=== PATIENT | female | born 1950 | race Caucasian/White ===

== ENCOUNTER → 2018-09-02 13:36 | Outpatient (CLI) | payer MEDICARE, SELFPAY ==
--- NOTE | 2018-09-02 13:40 | DI.MG.S_ITS ---
BILATERAL DIGITAL SCREENING MAMMOGRAM 3D/2D WITH CAD: 09/02/2018 CLINICAL: Routine screening. Comparison is made to exams dated: 03/17/2014 mammogram, 12/20/2012 mammogram, and 10/18/2011 mammogram - [facility]. The tissue of both breasts is extremely dense, which lowers the sensitivity of mammography. Current study was also evaluated with a Computer Aided Detection (CAD) system. There are mole markers on both breasts. No significant masses, calcifications, or other findings are seen in either breast. There has been no significant interval change. IMPRESSION: NEGATIVE There is no mammographic evidence of malignancy. A 1 year screening mammogram is recommended. This exam was interpreted at Station ID: [id number]. NOTE: For mammograms, a report in lay terms will be sent to the patient. Approximately 15% of breast malignancies will not be visualized mammographically. In the management of a palpable breast mass, a negative mammogram must not discourage biopsy of a clinically suspicious lesion. Electronically Signed By: Satya hagen/lilliam:09/02/2018 20:14:02 letter sent: Normal Exam ACR BI-RADS Category 1: Negative 3341F
== END ==
PROVIDERS: PCP Internal Medicine; Visit Provider Internal Medicine
DX: Z12.31 Encounter for screening mammogram for malignant neoplasm of breast (principal)
CPT/HCPCS: 77063; 77067

== ENCOUNTER → 2019-07-23 08:16 | Outpatient (CLI) | payer MEDICARE, SELFPAY ==
[2019-07-23 10:26] LABS: Alanine Aminotransferase 15 IU/L (<35); Albumin 4.2 g/dL (3.5-5.0); Albumin Globulin Ratio 1.4 (1.0-2.8); Alkaline Phosphatase 53 U/L (38-126); Aspartate Aminotransferase 26 IU/L (14-36); BUN Creatinine Ratio 21.4 (6-22); Bilirubin Total 0.4 mg/dL (0.2-1.3); Blood Urea Nitrogen 15 mg/dL (7-17); Calcium 9.4 mg/dL (8.4-10.2); Carbon Dioxide 28 mmol/L (22-32); Chloride 106 mmol/L (98-107); Cholesterol 249 mg/dL (140-199); Estimated Glomerular Filt Rate > 60.0 mL/min (>60); Glucose 84 mg/dL (80-110); HDL Cholesterol 74 mg/dL (40-60); HEMOLYSIS < 15 (0-50); LDL Cholesterol Calculated 166 mg/dL (<100); Sodium 142 mmol/L (137-145); Total Protein 7.2 g/dL (6.3-8.2); Triglycerides 45 mg/dL (35-150)
== END ==
PROVIDERS: PCP Internal Medicine; Referring Provider Internal Medicine; Visit Provider Internal Medicine
DX: Z13.1 Encounter for screening for diabetes mellitus (principal); Z13.220 Encounter for screening for lipoid disorders; Z13.6 Encounter for screening for cardiovascular disorders
CPT/HCPCS: 36415; 80053; 80061

== ENCOUNTER → 2019-07-31 10:54 | Outpatient (CLI) | payer MEDICARE, SELFPAY ==
--- NOTE | 2019-07-31 10:56 | DI.RAD.S_ITS ---
PROCEDURE: XR HAND LT MIN 3V INDICATIONS: left hand pain TECHNIQUE: 3 views of the hand(s) acquired. COMPARISON: None. FINDINGS: Bones: No fractures or dislocations. Carpal bones are normally aligned. No suspicious bony lesions. Partial lucency present at the third MCP joint. There also prominent lucency seen within the triquetral, lunate and distal radius. Possible faint chondrocalcinosis projecting the ulnocarpal compartment. Marginal lucency seen at the DIP joint of the index, middle, ring and little finger. First CMC and triscaphe joint degeneration. Additional lucency present at the base of the fifth metacarpal. Soft tissues: No suspicious soft tissue calcifications. IMPRESSION: Marginal lucencies present at the third MCP joint, as well as the DIP joints of the fingers as above Additional lucencies present within the lunate, triquetral and distal radius. These could represent erosions versus cysts, technically age-indeterminate the absence of prior studies. Faint chondrocalcinosis projects in the ulnocarpal compartment. Combined with the lucencies discussed above, this raises the possibility of CPPD arthropathy. Dictated by: Cong Alexander M.D. on 07/31/2019 at 13:19 Approved by: Cong Alexander M.D. on 07/31/2019 at 13:23
== END ==
PROVIDERS: PCP Internal Medicine; Referring Provider Internal Medicine; Visit Provider Internal Medicine
DX: M79.642 Pain in left hand (principal); M18.12 Unilateral primary osteoarthritis of first carpometacarpal joint, left hand
CPT/HCPCS: 73130

== ENCOUNTER → 2020-06-11 09:04 | Outpatient (CLI) | payer MEDICARE, SELFPAY ==
[2020-06-11 13:31] LABS: COVID19 -Nasal RAPID Negative (Negative)
== END ==
PROVIDERS: PCP Internal Medicine; Visit Provider Surgery
DX: Z01.812 Encounter for preprocedural laboratory examination (principal); Z20.822 Contact with and (suspected) exposure to COVID-19
CPT/HCPCS: 87635; C9803

== ENCOUNTER 2020-06-14 08:14 | Day surgery (SDC) | payer MEDICARE, SELFPAY ==
--- NOTE | 2020-06-14 | PATH_ITS ---
[facility] Accession Number: [id number] . 01 Material submitted: . colon - DESCENDING COLON POLYP . 01 Clinical history: . SCREENING COLONOSCOPY . 02 Diagnosis: Descending Colon, Polyp, Biopsy: Focal high-grade dysplasia arising in a background of multiple fragments of tubulovillous adenoma. No evidence of invasive carcinoma. Additional levels were examined. MRV 06/18/2020 1456 Local . 02 Comment: As part of routine supplier quality engineer, Dr. Hughes also reviewed this case and agrees with the diagnosis. Dr. Velazquez gave preliminary results to Ya in Dr. Valentine's office on 06/18/2020. . 02 Electronically signed: . Janice Velazquez MD, Pathologist NPI- [id number] . 01 Gross description: . DESCENDING COLON POLYP: Received in formalin are multiple fragment(s) of hernandez, soft tissue measuring 0.1 x 0.1 x 0.1 cm to 0.4 x 0.4 x 0.3 cm submitted entirely in 1 cassette(s) /CRISTINA 06/15/2020 192 Local . 02 Pathologist provided ICD-10: D12.4 . 02 CPT . 445404 Performed at: 01 [facility] [address], [place], [place] [id number] MD Samir Anderson MD Phone: [phone] Performed at: 02 [facility] [address] [place], [place] [id number] MD Janice Velazquez MD Phone: [phone]
[2020-06-14 08:38] VITALS: BP 141/87; PULSE 79; RESP 16; TEMP 36.2; O2SAT 97; BMI 25.3
[2020-06-14] MEDS: LACTATED RINGERS 1,000 ML 200 ML IV (09:05)
--- NOTE | 2020-06-14 09:34 | PM.HP.1 ---
History of Present Illness History of Present Illness Date Patient Seen: 06/14/20 Time Patient Seen: 09:36 Chief complaint: SCREENING COLONOSCOPY Narrative: The patient presents for colorectal sreening. They have never had any previous examination for such. No personal or family history of colon cancer. On further history denies any recent gastrointestinal symptoms. No nausea, vomiting, abdominal pain, loss of appetite, unexplained weight loss, change in bowel habits, diarrhea, constipation, melena, hematochezia, or bright red blood per rectum. Patient History Medical History Cardiac arrhythmia (~1985) Chicken pox Chronic back pain Herpes History of urinary self-catheterization (~1998) Skin problem (~2018) Surgical History Anesthesia S/P breast lumpectomy Family & Social History Family History Father History of heart attack Colonic adenoma Mother Hypertension Stroke Sister Early onset Alzheimer's dementia Grandmother Alzheimer's disease Grandmother Leukemia Tobacco & Substance use: Smoking Status Former smoker alcohol intake current alcohol intake frequency a few times a week Substance Use Type marijuana Meds Home Medications and Allergies Home Medications Medication Instructions Recorded Confirmed Type ginseng 500 mg capsule 500 mg PO .QOTHERWEEK cap 07/31/19 06/14/20 History multivitamin 1 tab PO DAILY 07/31/19 06/14/20 History turmeric root extract 500 mg 500 mg PO DAILY 07/31/19 06/14/20 History capsule Allergies Allergy/AdvReac Type Severity Reaction Status Date / Time No Known Drug Allergies Allergy Verified 07/31/19 09:52 Review of Systems Review of Systems Narrative: A 10 point review of systems is negative except as noted in the HPI Exam Vital Signs (past 8 hours): - 06/14/20 08:38 Temperature 97.1 F L Pulse Rate 79 Respiratory Rate 16 Blood Pressure 141/87 H Pulse Oximetry 97 Oxygen Delivery Method Room Air Oxygen Flow Rate 0 Narrative Exam Narrative: General-no acute distress, well nourished adult female HEENT-moist mucous membranes, no scleral icterus Neck-supple, no lymphadenopathy Chest- non labored respirations, clear to auscultation bilaterally Cardiac-regular rate no peripheral edema Abdomen-soft, nontender, non distended Extremities-warm, well perfused Neurological-alert and oriented, no focal deficits Assessment & Plan Assessment & Plan narrative: The patient requires colorectal screening and colonoscopy is recommended. Technical details were discussed. Risks, benefits, alternatives explained. Risks including but not limited to myocardial infarction, aspiration, bleeding, pain, missed lesion, incomplete examination, need for further radiographic studies, colonic perforation, and need for major abdominal surgery were discussed. All questions were answered to their satisfaction, and they are in agreement with this plan.
[2020-06-14] MEDS: fentaNYL 250 MCG/5 ML INJ IV (09:56)
[2020-06-14] MEDS: MIDAZOLAM 5 MG/5 ML VIAL IV (09:56)
[2020-06-14 10:30] VITALS: BP 131/73; PULSE 75; RESP 19; TEMP 36.6; O2SAT 99
--- NOTE | 2020-06-14 10:30 | PM.OP.ENDO ---
Operative Date/Time/Diagnoses Date of procedure: 06/14/20 Time of procedure: 10:30 Pre-op diagnosis: Screening colonoscopy Post-op diagnosis: same Procedure & Clinicians Study performed: Colonoscopy Polypectomy Same procedure as scheduled: Yes Indications: 69-year-old female no prior colonoscopy here for routine screening Surgeon: Dereje Valentine Procedure Notes Procedure in detail: Medications: Conscious sedation using 5*mg IV midazolam and 200mcg IV of fentanyl The history and physical was performed/updated and the patient is ASA class is 1. The procedure was discussed in detail with the patient. Potential risks complications including infection, bleeding, missed diagnosis, perforation, need for surgery, and were explained. Their questions were answered and informed consent was obtained. Patient was brought to the procedure room and placed standard monitoring equipment. The patient's vital signs were monitored continuously throughout the entire procedure. Prior to starting time-out was performed. The patient was placed in the left lateral recumbent position. Procedural sedation was administered. Examination began with a thorough inspection of the perianal area there was no evidence of fissures, fistulae, external hemorrhoids or cutaneous malignancy. The colonoscopy scope was then placed into the anal canal and was advanced to the cecum, which was identified by the ileocecal valve, the appendiceal orifice and the confluence of the taenia. The scope was then slowly withdrawn examining colon thoroughly in all directions, irrigating it of any residual stool. A large polyp 2-3 cm in maximal diameter or collection of polyps within grouping were found in the descending colon at 35 cm from the anal verge. Polyp was Serrated in its appearance. I was able to removed approximately 90% of the polyp in pieces using the cold snare. Hemostasis was observed. I could not remove the entirety of the polyp given the very flat consistency of the polyp and concerned that I would be at risk of causing a perforation. The site of the polyp was tattooed with 3 mL of ink spread through 4 quadrants just distal to to the polyp. The patient tolerated the procedure well. They will be discharged once criteria are met. The prep was of good/excellent quality. The withdrawl time was 22 minutes. The sedation time was 43 minutes. Findings: polyp Specimen(s): other (Descending colon) Complications: none Impression: Colonic polyp Post-procedure Recommendations: Colonscopy in 1 year Disposition: same day surgery
[2020-06-14 10:35] VITALS: BP 129/70; PULSE 69; RESP 16; O2SAT 99
[2020-06-14 10:42] VITALS: BP 140/77; PULSE 73; RESP 16; O2SAT 98
--- NOTE | 2020-06-14 10:58 | SUR.PHASEII ---
Pt arrived from phase II via stretcher. pt sitting up in bed and easily arousable to voice when spoken to. pt requesting to rest longer prior to discharge at this time. Pt denies any pain/or discomfort. Bed in lowest position and call light given to pt.
[2020-06-14 11:15] VITALS: BP 132/80; PULSE 68; RESP 15; TEMP 36.6; O2SAT 98
== END 2020-06-14 11:30 | disposition home or self-care (01) ==
PROVIDERS: PCP Internal Medicine; Referring Provider Surgery; Visit Provider Surgery
PROC: 0DJD8ZZ Inspection of Lower Intestinal Tract, Via Natural or Artificial Opening Endoscopic (ICD-10-PCS; CPT 45378; principal; 2020-06-14 09:15)
DX: Z12.11 Encounter for screening for malignant neoplasm of colon (principal); D12.4 Benign neoplasm of descending colon
CPT/HCPCS: 45381; 45385; 99152; 99153; J2250; J3010

== ENCOUNTER → 2020-07-01 07:34 | Outpatient (CLI) | payer MEDICARE, SELFPAY ==
[2020-07-01] MEDS: COVID-19 VACC #1, MRNA(MOD) 100 MCG/0.5 ML VIAL IM (07:48)
== END ==
PROVIDERS: PCP Internal Medicine; Visit Provider Internal Medicine
DX: Z23 Encounter for immunization (principal)
CPT/HCPCS: 0011A; 91301

== ENCOUNTER → 2020-07-05 10:03 | Outpatient (CLI) | payer MEDICARE, SELFPAY ==
--- NOTE | 2020-07-05 10:04 | DI.MG.S_ITS ---
BILATERAL DIGITAL SCREENING MAMMOGRAM 3D/2D WITH CAD: 07/05/2020 CLINICAL: Routine screening. Comparison is made to exams dated: 09/02/2018 mammogram - [facility], 03/17/2014 mammogram, and 12/20/2012 mammogram - [facility]. The tissue of both breasts is extremely dense, which lowers the sensitivity of mammography. Current study was also evaluated with a Computer Aided Detection (CAD) system. There are mole markers on both breasts. No significant masses, calcifications, or other findings are seen in either breast. There has been no significant interval change. IMPRESSION: NEGATIVE There is no mammographic evidence of malignancy. A 1 year screening mammogram is recommended. This exam was interpreted at Station ID: [id number]. NOTE: For mammograms, a report in lay terms will be sent to the patient. Approximately 15% of breast malignancies will not be visualized mammographically. In the management of a palpable breast mass, a negative mammogram must not discourage biopsy of a clinically suspicious lesion. Electronically Signed By: Bryan paz/lilliam:07/05/2020 11:09:53 letter sent: Normal Exam ACR BI-RADS Category 1: Negative 3341F
== END ==
PROVIDERS: PCP Internal Medicine; Referring Provider Internal Medicine; Visit Provider Internal Medicine
DX: Z12.31 Encounter for screening mammogram for malignant neoplasm of breast (principal)
CPT/HCPCS: 77063; 77067

== ENCOUNTER → 2020-07-12 09:09 | Outpatient (CLI) | payer MEDICARE, SELFPAY ==
[2020-07-12 12:20] LABS: COVID19 -Nasal RAPID Negative (Negative)
== END ==
PROVIDERS: PCP Internal Medicine; Visit Provider Surgery
DX: Z20.822 Contact with and (suspected) exposure to COVID-19 (principal)
CPT/HCPCS: 87635

== ENCOUNTER 2020-07-13 06:28 | Inpatient (IN) | payer MEDICARE, SELFPAY ==
[2020-07-13] VITALS (21 sets, daily range): BP systolic 92–127; BP diastolic 49–73; PULSE 59–98; RESP 9–18; TEMP 35.9–36.7; O2SAT 94–99; BMI 25.3
--- NOTE | 2020-07-13 | PATH_ITS ---
[facility] Accession Number: [id number] . 01 Material submitted: . sigmoid colon - SIGMOID COLON SEGMENT . 01 Clinical history: . A: SIGMOID COLON SEGMENT, STITCH AT LESION . 02 Diagnosis: Sigmoid Colon, Segmental Resection: Tubulovillous adenoma; please see comment. Diverticulosis. No evidence of malignancy or high-grade dysplasia. [facility] 07/20/2020 1532 Local . 02 Comment: The lesion of interest is a tubulovillous adenoma. The residual lesion contains no high-grade dysplasia and extends focally and superficially into an underlying diverticulum. There is no evidence of malignancy. . . 02 Electronically signed: . Janice Velazquez MD, Pathologist NPI- [id number] . 01 Gross description: . The specimen is received in formalin, labeled sigmoid colon segment and consists of a 12.0 cm in length by 3.0 cm in external diameter portion of colon with two stapled margins. The serosa is hernandez-pink and smooth and there is an abundant amount of attached adipose tissue. The specimen has been partially previously opened and there is a suture lesion. The mucosa is hernandez-pink with normal mucosal folds and there is a 1.0 x 1.0 x 0.5 cm hernandez-pink nodule adjacent to the suture designated lesion. Sectioning reveals possible extension into the submucosa; however, no obvious involvement with the muscularis propria. The lesion is located 2 cm from the closest stapled margin and greater than 5 cm from the mesenteric and opposing margin. The wall thickness measures 0.2 cm. There is a 0.5 x 0.4 x 0.2 cm possible sessile polyp located 6.0 cm from the mass and 2.6 cm from the nearest stapled margin. Sectioning through the attached adipose tissue reveals multiple lymph nodes ranging from 0.2 to 0.5 cm. Multiskill Operator sections are submitted. . A1: plastic products sales representative perpendicular sections of stapled margin nearest mass. A2: opposing stapled margin (blue). A3-A4: mass, entirely submitted. A5: colon away from mass, please note that possible sessile polyp is included. A6: intact lymph nodes. A7-A10: plastic products sales representative adipose tissue. (EA:[id number]) /MRV 07/20/2020 1532 Local . 02 Microscopic: . . . 02 Pathologist provided ICD-10: D12.5 . 02 CPT . 168544 Performed at: 01 [facility] [address] [place] [address], [place], [place] [id number] MD Samir Anderson MD Phone: [phone] Performed at: 02 [facility] [place] [address] [place], [place] [id number] MD Janice Velazquez MD Phone: [phone]
[2020-07-13] MEDS: LACTATED RINGERS 1,000 ML 42 ML IV ×3 (07:10→12:50)
[2020-07-13] MEDS: ACETAMINOPHEN IV 1,000 MG/100 ML VIAL 400 MG IV (07:20)
--- NOTE | 2020-07-13 07:35 | PM.PREOP ---
Pre-operative Note Interval Note History & Physical reviewed/Exam performed by Physician: Yes Changes to H&P: No
[2020-07-13] MEDS: PIPERACILLIN-TAZO 3.375 GM/50 ML FROZ.PIGGY IV (08:10)
[2020-07-13] MEDS: BUPIVACAINE LIPOSOME 266 MG/20 ML VIAL INJ (08:25)
[2020-07-13] MEDS: BUPIVACAINE 0.25% (PF) VIAL 30 ML INJ (08:30)
--- NOTE | 2020-07-13 08:47 | SUR.OPER ---
Lithotomy on padded OR bed. [place] Pad Positioner under torso. Head on pillow, arms padded and tucked at sides. Legs secured in padded yellow fins stirrups.
--- NOTE | 2020-07-13 12:22 | PM.OP.1 ---
Operative Date/Time/Diagnoses Date of procedure: 07/13/20 Time of procedure: 12:22 Pre-op diagnosis: high grade dysplasia in a colonic adenoma Post-op diagnosis: same Procedure & Clinicians Procedure: laparoscopic assisted sigmoid colectomy Same procedure as scheduled: Yes Indications: 69F had an incompletely removed colonic adenoma with high grade dysplasia here for sigmoid colectomy Surgeon: Dereje Valentine Full Stack Net Developer: David aMy Anesthesia Type: General Operative Notes Findings: remnant of the colonic polyp within the resection. no evidence of metastatic disease. Negative leak test Specimen(s): other (sigmoid colon stitch metzger the lesion) Estimated Blood Loss (mL): 50 Procedure in detail: The patient was brought to the operating room and placed supine on the table. Bilateral lower extremity compression devices were applied. General anesthesia was induced and they were intubated with an endotracheal tube. They were placed in the lithotomy position and prepped and draped in sterile fashion. A juan catheter was placed under sterile condition. They received 3.375 g of Zosyn prior to skin incision. Time-out was performed to ensure the correct patient procedure necessary equipment within the operating room. An infraumbilical 1 cm incision was made, the umbilical stalk was elevated, the fascia was sharply incised and the abdomen was entered atraumatically. Pneumoperitoneum was established. The laparoscope was inserted into the abdomen, inspection was made there was no evidence of injury upon entry. 5 mm ports were placed suprapubic and the right lower quadrant. There sigmoid colon was mobilized off its lateral attachements. The descending colon was followed down to the pelvis the tattoo marking was not clearly focal and therefore an on table colonoscopy was performed, the polyp remnant was observed and the location marked for identification. The sigmoid colon was extremely mobile and redundant and easily mobilized to the midline. A 6 inch infra umbilical incision was made and the sigmoid colon was exteriorized. The colon was divided with the LONNIE stapler blue load 70 mm above and below the lesion. The mesentery was divided relatively close to the colon wall as the pathology was high grade dysplasia not invasive cancer. The specimen was opened on the back table and the remnant adenoma was within the specimen with at least 3 cm margins proximal and distal. A hand sewn end to end anastamosis was formed in two layers using silk and vircyl. The anastamosis was widely patent and well perfused. The anastamosis was leak tested and this was negative. The abdomen was copiously irrigated and hemostasis checked. The midline fascia was closed with #1 PDS in running fashion. The subcutaneous tissues were reapproximated using 3 0 Vicryl, skin closed with 3-0 Monocryl. The laparoscopic port incisions were closed with 4-0 Monocryl. The skin was sealed with Dermabond. The sponge instrument count at the end of the operation was correct. The patient emerged from general anesthesia, extubated and transferred to the postoperative care unit in stable condition. Complications: none Post-operative Condition: stable Disposition: Acute Care
[2020-07-13] MEDS: LACTATED RINGERS 1,000 ML 100 ML IV ×2 (13:40→21:51)
--- NOTE | 2020-07-13 13:44 | PT-IP ANOTE ---
pt is still in PACU and not up on the acute floor yet. will f/u tomorrow.
--- NOTE | 2020-07-13 14:20 | PC.NURSE ---
Postop Note Pt arrived to room 227 from PACU at 1340. Drowsy but awakens easily to voice, able to answer all questions appropriately, oriented x3. SpO2 96% on RA. VSS. Denies pain, denies nausea. Incision to abdomen sealed with surgical glue, C/D/I except for small amount sanguinous drainage to umbilicus - gauze lightly placed over this portion of site. Lap sites all C/D/I. Mims in place and draining clear yellow urine. Oriented to room/call light/bed controls. Call light within reach, acknowledged understanding and will call before getting out of bed. Bed alarm on for safety. Declines to lock up any valuables in safe. Has one pair earrings, one necklace, and one pink stone that she wishes to keep in room (jewelry from her daughters). Three bags total in room. Upper dentures by sink.
--- NOTE | 2020-07-13 14:52 | OT.IPNOTE ---
Per ICU nurse, pt just came up to the floor and not ready to be seen for OT eval. To check on the pt tomorrow.
[2020-07-13] MEDS: ACETAMINOPHEN 325 MG TABLET 650 MG PO ×2 (18:54→23:58)
[2020-07-13] MEDS: MORPHINE 2 MG/ML INJ IV (18:55)
--- NOTE | 2020-07-13 22:53 | PC.NURSE ---
Report received, care assumed 1530. Pt. drowsy but arousable, oriented x3. VSS throughout shift. Tolerated sips of clear liquids. Reported mild to moderate pain; interventions included meds and ice pack. Pt slept most of shift. Continuous pulse ox on.
[2020-07-14] VITALS (8 sets, daily range): BP systolic 107–179; BP diastolic 56–93; PULSE 63–82; RESP 10–18; TEMP 36.6–37.2; O2SAT 95–98
[2020-07-14] MEDS: ACETAMINOPHEN 325 MG TABLET 650 MG PO ×3 (06:40→17:22)
--- NOTE | 2020-07-14 06:52 | PC.NURSE ---
Patient slept majority of the shift without complaint. Mild pain to abd - declines need for analgesia aside from scheduled tylenol. Encouraged more frequent repositioning. Tolerating clear liquid diet.
[2020-07-14] MEDS: LACTATED RINGERS 1,000 ML 100 ML IV (08:05)
[2020-07-14] MEDS: ENOXAPARIN 40 MG/0.4 ML SYRINGE SUBCUT (09:14)
[2020-07-14] MEDS: OXYCODONE IR 5 MG TABLET PO ×3 (09:15→17:23)
--- NOTE | 2020-07-14 10:02 | P.PN_ITS ---
Subjective Subjective Date Patient Seen: 07/14/20 Time Patient Seen: 10:02 Interval history: Pain well controlled. No nausea no flatus or BM. No acute overnight issues. Tolerated clears. Exam Vital Signs (past 8 hours): - 07/14/20 03:00 07/14/20 08:00 07/14/20 08:57 Temperature 97.9 F 98.2 F Pulse Rate 63 73 69 Respiratory Rate 14 18 10 L Blood Pressure 107/56 L 139/63 139/75 Pulse Oximetry 98 98 97 Oxygen Delivery Method Room Air Oxygen Flow Rate 0 Narrative Exam Narrative: Gen-Adult woman alert no acute distress Chest-Non labored resp Abdomen-Appropriately tender to palpation. Midline incision CDI. Ext-WWP Objective Labs Labs: Laboratory Results - last 24 hr 07/13/20 13:45 Nasal Screen MRSA (PCR) Negative for mrsa [facility] Medical History (Updated 07/12/20 @ 08:23 by Claudia Murphy RN) Bruises easily Cardiac arrhythmia (~1985) Chicken pox Chronic back pain Elevated cholesterol Former smoker Groin pain Has a tremor Herpes History of adenomatous polyp of colon (~06/14/20) History of urinary self-catheterization (~1998) Post-menopausal Skin problem (~2018) Urinary retention Surgical History Anesthesia S/P breast lumpectomy Family History Father History of heart attack Colonic adenoma Mother Hypertension Stroke Sister Early onset Alzheimer's dementia Grandmother Alzheimer's disease Grandmother Leukemia Social History household members: family Smoking Status: Former smoker alcohol intake: current Assessment & Plan Post-op Postoperative Procedures: Procedures Operation Date: 07/13/20 07:45 Actual Procedures Side Surgeon p Lap. Colectomy Dereje Valentine MD Postoperative status narrative: 69F POD 1 sp sigmoid colectomy for colonic polyp with high grade dysplasia doing well. -Advance to full liquids. DC IVF -OOB to chair, ambulate PT and OT -SCDs and pLovenox -Remove juan catheter Quality VTE Deep Vein Thrombosis/Pulmonary Embolism Present on Admission: No
--- NOTE | 2020-07-14 10:15 | PT.IIE ---
Current Diagnoses Malignant neoplasm of colon, unspecified (07/13/20) Surgery Performed Operation Date: 07/13/20 07:45 Actual Procedures p Lap. Colectomy - Dereje Valentine MD Surgical History (Last Reviewed 07/01/20 @ 10:17 by Dereje Valentine MD) Anesthesia S/P breast lumpectomy Medical History (Last Updated 07/12/20 @ 08:23 by Claudia Murphy RN) Bruises easily Cardiac arrhythmia (~1985) Chicken pox Chronic back pain Elevated cholesterol Former smoker Groin pain Has a tremor Herpes History of adenomatous polyp of colon (~06/14/20) History of urinary self-catheterization (~1998) Post-menopausal Skin problem (~2018) Urinary retention Physical Therapy Inpatient Evaluation/Re-Eval M1 PT/OT-IP Prior Functional Status Start: 07/14/20 11:35 Freq: NEEDED Status: Active Protocol: Document 07/14/20 10:15 AB (Rec: 07/14/20 12:09 AB [id number]) Medical Review Prior Functional Status Medical History Reviewed Yes Communication able to make needs known Mobility and Gait pt stated that she is independent with all mobilities and ambulation without AD Social History Household Members family Living Arrangements House Number of Floors (Floors) Two Floors Number of Stairs To Enter/Railing? has 1 step to enter; pt can stay on first level; kitchen is up stairs and has 6 steps L rail +landing+ 9 steps R rail Home Environment Standard Height Toilet,Walk in Shower Additional Social History Comment stated that her daughter and son-in-law will be taking days off work to assist her at home M2 PT-IP Current Condition Start: 07/14/20 11:35 Freq: NEEDED Status: Active Protocol: Document 07/14/20 10:15 AB (Rec: 07/14/20 12:09 AB [id number]) Physical Therapy Current Condition Current Condition Evaluation Date 07/14/20 Treatment Diagnosis colonic adenoma s/p colectomy; difficulty in walking Onset Date 07/13/20 Precautions Abdominal Surgery Precautions Log Roll,Lifting Restrictions, Gait Belt above Incisional Area M3 PT-IP Subjective Start: 07/14/20 11:35 Freq: NEEDED Status: Active Protocol: Document 07/14/20 10:15 AB (Rec: 07/14/20 12:09 AB [id number]) Subjective Physical Therapy Visit Type Type Initial Evaluation Visit Start Time 10:15 Visit Stop Time 10:40 Total Visit Minutes 25 Number of YARN DUMPER Visits 0 Physical Therapy Visit Comments Patient Comments pt is agreeable to do PT Therapy Pain Assessment Pain When Pain Assessed At Rest Pain Present Pain Present Pain Reported Location Abdomen Intensity 3 Scale Used Numeric (0 - 10) Pain Management Techniques Distraction,Modification of Treatment,Re-positioning, Timing of Activity with Medications M4 PT-IP Mobility and Gait Start: 07/14/20 11:35 Freq: NEEDED Status: Active Protocol: Document 07/14/20 10:15 AB (Rec: 07/14/20 12:09 [id number]) PT-Bed Mobility Assessment Rolling Type of Rolling Log Rolling Level of Assist Standby Assistance Supine to Sit Supine to Sit Standby Assistance Sit to Supine Sit to Supine Standby Assistance PT-Transfer Assessment Sit to and From Stand Sit to and from Stand Contact Guard Assistance,1 Person Assistance,Use of Upper Extremities Equipment Transfer Assistive Device Gait Belt,Front Wheeled Walker Orthotic/Prosthetic Devices or Brace: No Transfers Transfer Destination Bed,Chair Transfer Technique ambulated using FWW Transfer Ability Level of Assist Contact Guard Assistance,1 Person Assistance,Use of Upper Extremities Comments Mobility Comments pt sitting on chair and agreeable to do PT. educated on abdominal precautions and log roll bed mobility. pt completed sit to stand from chair CGA and ambulated in room using FWW 30 ft CGA. presents with decrease step length and elevation. completed supine <>sit log roll SBA and cues for techniques. completed step transfer to chair using FWW CGA. positioned on chair. call light and table placed within reach. Gait Assessment Gait Gait Assistance Required: Contact Guard Assist Distance (Feet) 30 Able to Maintain Weight Bearing Status Yes During Gait Assistive Devices Assistive Device Gait Belt,Front Wheeled Walker Orthotic/Prosthetic Devices or Brace: No Gait Deviations General Gait Pattern Decreased Stride Length, Decreased Feet Clearance Factors Limiting Gait Function Factors Limiting Gait Function Decreased Activity Tolerance, Decreased Strength,Pain,Poor Safety Awareness PT-Balance Assessment Sitting Balance and Reactions Static Sitting Balance Ability Good Dynamic Sitting Balance Ability Good Standing Balance and Reactions Static Standing Balance Ability Fair Dynamic Standing Balance Ability Fair Device Used FWW M5 PT-IP Objective Assessments Start: 07/14/20 11:35 Freq: NEEDED Status: Active Protocol: Document 02/10/21 10:15 AB (Rec: 07/14/20 12:09 AB [id number]) Orientation Orientation/Cognition Level of Alertness Alert Orientation Name,Place,Situation Language Function Ability No Deficits Noted Memory Description Short Term Impaired Gross Range of Motion Lower Extremity ROM Assessment Within Functional Limits Strength Lower Extremity Strength Hip 4-/5 Knee 4+/5 Coordination Assessment Gross Coordination Gross Coordination WNL Sensation Assessment Sensation Gross Sensation WNL Muscle Tone Muscle Tone WNL Yes M6 PT-IP Treatment Start: 07/14/20 11:35 Freq: NEEDED Status: Active Protocol: Document 07/14/20 10:15 AB (Rec: 07/14/20 12:09 AB [id number]) Physical Therapy Treatment Education Education Provided Precautions,Safety M7 PT-IP Assessment and Plan Start: 07/14/20 11:35 Freq: NEEDED Status: Active Protocol: Document 07/14/20 10:15 AB (Rec: 07/14/20 12:09 AB [id number]) PT Summary Assessment and Plan Potential Rehabilitation Potential Good Status of Condition at Evaluation Stable Summary Impairments Pain,ROM,Strength,Balance,Bed Mobility,Transfers,Gait, Activity Tolerance Assessment Summary pt requires CGA with mobility using FWW and presents with decrease activity tolerance. pt plans to go home and will have her family to assist her at home. will continue to assess progress. Goals Bed Mobility Goal Independent Transfer Goal Independent,Front Wheeled Walker Gait Goal Independent,Front Wheel Walker Gait Distance 200 Other Goals improve ambulation without AD 150 ft SBA up/down 1 step using FWW/ without AD; up/down 6 steps L rail and 9 steps R rail SBA Days to Meet Goals 10 Frequency of Treatment Frequency Of Treatment Once a Day Treatment Plan Physical Therapy Treatment Plan Bed Mobility Training,Transfer Training,Gait Training, Therapeutic Exercise,Balance Retraining,Post Op Education, Discharge Planning,Hot or Cold Pack,Neuromuscular Re-ed, Coordination Retraining Recommendations To Nursing Amount of Assist Needed 1 Person Assist Discharge Recommendations PT Discharge Recommendations Home with Assistance,Home Health Equipment Needed for Home Before FWW if not safe without AD Discharge Transportation Needs at Discharge Private Vehicle
--- NOTE | 2020-07-14 10:19 | OT.IP.EVAL ---
Current Diagnoses Malignant neoplasm of colon, unspecified (07/13/20) Surgery Performed Operation Date: 07/13/20 07:45 Actual Procedures p Lap. Colectomy - Dereje Valentine MD Past Medical History (Last Updated 07/12/20 @ 08:23 by Claudia Murphy RN) Bruises easily Cardiac arrhythmia (~1985) Chicken pox Chronic back pain Elevated cholesterol Former smoker Groin pain Has a tremor Herpes History of adenomatous polyp of colon (~06/14/20) History of urinary self-catheterization (~1998) Post-menopausal Skin problem (~2018) Urinary retention Surgical History (Last Reviewed 07/01/20 @ 10:17 by Dereje Valentine MD) Anesthesia S/P breast lumpectomy Occupational Therapy Inpatient Evaluation/Re-Eval M1 PT/OT-IP Prior Functional Status Start: 07/14/20 12:41 Freq: NEEDED Status: Active Protocol: Document 07/14/20 09:31 [facility] (Rec: 07/14/20 12:57 [facility] [id number]) Medical Review Prior Functional Status Medical History Reviewed Yes Communication able to make needs known Mobility and Gait pt stated that she is independent with all mobilities and ambulation without AD Activities of Daily Living and IADL's Pt completely independent with all ADL and IADL needs. Social History Household Members family Living Arrangements House Number of Floors (Floors) Two Floors Number of Stairs To Enter/Railing? has 1 step to enter; pt can stay on first level; kitchen is up stairs and has 6 steps L rail +landing+ 9 steps R rail Home Environment Standard Height Toilet,Walk in Shower Additional Social History Comment stated that her daughter and son-in-law will be taking days off work to assist her at home M2 OT-IP Current Condition Start: 07/14/20 12:41 Freq: Status: Active Protocol: Document 07/14/20 09:31 [facility] (Rec: 07/14/20 12:57 [facility] [id number]) Occupational Therapy Current Condition Current Condition Evaluation Date 07/14/20 Treatment Diagnosis s/p sigmoid colectomy, decreased mobility Diagnosis Onset Date 07/13/20 Post Operative Precautions Abdominal Surgery Precautions Log Roll,Lifting Restrictions, Gait Belt above Incisional Area M3 OT- IP Subjective and Pain Start: 07/14/20 12:41 Freq: Status: Active Protocol: Document 07/14/20 09:31 [facility] (Rec: 07/14/20 12:57 [facility] [id number]) OT- Subjective Occupational Therapy Visit Type Type Initial Evaluation Visit Start Time Visit Stop Time 10:19 Total Visit Minutes 48 Occupational Therapy Visit Comments Patient Comments Pt agreed to get up for Ot eval. Patient/Caregiver Goals to go home OT Pain Assessment Pain When Pain Assessed At Rest Pain Present Pain Present Pain Reported Location Abdomen Intensity 3 Scale Used Numeric (0 - 10) M4 OT- IP ADL's Start: 07/14/20 12:41 Freq: Status: Active Protocol: Document 07/14/20 09:31 [facility] (Rec: 07/14/20 12:57 [facility] [id number]) OT [id number] Comments OT Self-Feeding Comments Pt just drinking clear liquid at the time. OT ADL-Grooming General Evaluation Grooming Ability Standby Assistance Areas Needing Assistance Retrieving/Set-up of Grooming Items Comments OT Grooming Comments Pt able to do while standing at the sink. Educated to sip into a cup. OT ADL-Oral Care General Eval Oral Care Ability Independent OT ADL-Dressing General Eval Lower Body Dressing Ability Minimal Assistance Areas Needing Assistance Socks OT ADL-Toileting General Evaluation Toileting Ability Standby Assistance Comments OT Toileting Comments Pt able to sit on the toilet and able to simulate wiping and following her abdominal precautions with good safety. OT ADL-Bathing Comments OT Bathing Comments NOt at this time. M5 OT- IP IADL's Start: 07/14/20 12:41 Freq: Status: Active Protocol: Document 07/14/20 09:31 [facility] (Rec: 07/14/20 12:57 [facility] [id number]) OT-Instrumental Activities of Daily Living Home Safety Awareness Awareness of Need for Assistance at Home Good Awareness Ability to Problem Solve Emergency Able to Problem Solve Situations Medication Management Medication Management Comments No deficits noted at this time , pt has a supportive family to assist her as needed. Money Management Money Management Comments No deficits noted at this time , pt has a supportive family to assist her as needed. Meal Preparation Meal Preparation Caregiver Provides Assist Electrical Designer Electrical Designer Caregiver Provides Assist M6 OT- IP Functional Cognition Start: 07/14/20 12:41 Freq: Status: Active Protocol: Document 07/14/20 09:31 [facility] (Rec: 07/14/20 12:57 [facility] [id number]) Cognitive Factors Limiting Selfcare Function Cognitive Ability Level of Alertness Alert Patient Orientation Name,Age,Birthday,Month,Date, Year,Day of Week,Place, Situation Attention Span Ability Capable of Focused Attention, Capable of Sustained Attention Ability to Follow Commands Able to Follow Multi-Step Commands Memory Description No Deficits Noted Cognitive Comments Cognitive Assessment Comments No cognitive deficits noted at this time. OT- Vision and Hearing OT- Hearing Assessment OT- Hearing Assessment WFL OT- Vision Assessment Visual Acuity Glasses All The Time M7 OT- IP Mobility and Balance Start: 07/14/20 12:41 Freq: Status: Active Protocol: Document 07/14/20 09:31 [facility] (Rec: 07/14/20 12:57 [facility] [id number]) OT- Bed Mobility Assessment Rolling Type of Rolling Roll to Right Level of Assistance Standby Assistance,Bedrails Supine to Sit Supine to Sit Assist Standby Assistance OT-Transfer Assessment Sit to and From Stand Sit to and from Stand Contact Guard Assistance Transfers Transfer Ability Contact Guard Assistance Technique Transfer Destination Bed,Chair,Toilet Transfer Technique Stand Step Pivot Devices Transfer Assistive Devices Gait Belt,Front Wheeled Walker Comments Mobility Comments Pt heavy use of her arms to come to stand and to sit back down. Educated pt on log rolling for her abdominal precautions and pt able to demonstrate good safety. OT- Gait Assessment Comments Gait Ability Comments CGS with FWW in the room. OT- Balance Assessment Sitting Balance and Reactions Static Sitting Balance Ability Normal Dynamic Sitting Balance Ability Good Standing Balance and Reactions Static Standing Balance Ability Fair M8 OT- IP Objective Assessments Start: 07/14/20 12:41 Freq: Status: Active Protocol: Document 07/14/20:31 [facility] (Rec: 07/14/20 12:57 [facility] [id number]) OT Gross Range of Motion Upper Extremity Range of Motion Assessment Within Functional Limits OT Strength Upper Extremity Strength Assessment Within Functional Limits OT-Muscle Tone Assessment Muscle Tone WNL Yes, pt has tremor with her right hand. M9 OT- IP Assessment and Plan Start: 07/14/20 12:41 Freq: Status: Active Protocol: Document 07/14/20 09:31 [facility] (Rec: 07/14/20 12:57 [facility] [id number]) OT Summary Assessment and Plan Potential Rehabilitation Potential Good Analytic Complexity at Evaluation Low Summary OT Impairments Balance,Functional Mobility, Grooming,Dressing,Toileting, Bathing,Toilet Transfers, Shower Transfers,Activity Tolerance Progress Towards Goals Progressing Toward Goals Assessment Summary Pt low complexity and main barrier are decreased activity tolerance, now needing use of FWW for mobility needs and one person to assist with ADL needs. Pt has a supportive family to assist her at home. Goals Grooming Goal Independent Dressing Goal Independent Toileting Goal Independent Bathing Goal Independent Toilet Transfer Goal Independent Shower Transfer Goal Independent Days to Meet Goals 7 Frequency of Treatment Frequency Of Treatment Once a Day Treatment Plan OT Treatment Plan ADL Training,Functional Mobility,Patient/Family Education,Discharge Planning Discharge Recommendations OT Discharge Recommendations Home with Assistance Home Equipment Needs fww, showr chair, hand held shower spray Transportation Needs at Discharge Private Vehicle
--- NOTE | 2020-07-14 11:07 | CM.DANOTE ---
Patient is a 69 year old female who was admitted on 05/12/21 for Colectomy. Pt has M[employer] ADV and COMM for insurance and her PCP is Dr. Patrick De Jesus. EMR was reviewed. Per Surgeon, pt tolerated procedure well and advance diet to full liquids today and work with PT. Per PT, pt did well for initial eval in room and will work with pt again tomorrow and potentially on stairs as she has one to enter the home and recommending walker and maybe bath bench and provided pt with [employer] information for loaner DME. SW met bedside with pt and explained role and pt confirms that she lives 6 months in [place] and 6 months here in [place] at her Dtr and son sebastien's house and stays on the first floor. Pt is independent and active at baseline and helps with her two young grandsons when she lives here. Pt's Dtr's and family have been very strict with being cautious of COVID 19 precautions and therefore do not plan to enter the hospital and would likely not be comfortable with HH at d/c as it would require others to enter the home. Pt is hopeful for d/c back with Dtr assist and confirms that Dtr and CORINNA plan to use vacation days to assist pt at d/c. Dtr is willing to participate in FaceTime CG training with PT if needed. Dtr plans to call [employer] for DME needed prior to d/c. Plan: SW to follow closely for further PT and confirming pt can tolerate slowly advancing diet towards plan of home with family assist when stable. SW to follow for any further identified needs. JUANPABLO Altman Discharge Planning/Care Management Advanced directive, confirm from FAMILY Start: 07/13/20 14:19 Freq: Q24H Status: Active Protocol: Document 07/13/20 14:20 ANA (Rec: 07/13/20 14:20 ANA [id number]) Advance Directive, confirm on record Time 14:20 Person contacted pt Copy received No CM Discharge Assessment Start: 07/14/20 11:04 Freq: Status: Active Protocol: Document 07/14/20 11:04 BF (Rec: 07/14/20 11:07 BF [id number]) Discharge Planning Assessment Assigned Profile Trimmer JUANPABLO Reeder DPOA/Assigned Designee Name Dtda Vishnu Contact Information [phone] Advance Directives? Yes Advance Directives on File No History Provided By Patient,Medical Record Has Patient been admitted in last 30 No days? Prior Living Arrangements House Household Members family Type of transporation used prior to Drives own vehicle admit Independent with ADL's Yes Is patient alert and oriented? Yes Caregiver for Another Yes: helps with young grandkids Patient/Family Preference OP PT Therapy Barriers to Discharge No Discharge Plan Home Community Services Physical Therapy Transportation Arrangement Pt's Dtr can provide transport but avoiding entering the hospital due to COVID precautions Referrals Initiated None needed Additional Comment Pending further PT and stairs tomorrow Whiteboard Updated in Patient Room with Yes name and ext. # of Profile Trimmer Review Status In Process Please Provide Date Initial DC 07/14/20 Assessment Was Performed Next Review Type Continued Stay Review Pre-Anesthesia Assessment Start: 07/12/20 08:19 Freq: Status: Complete Protocol: Document 07/12/20 08:19 SIDDHARTHA (Rec: 07/12/20 08:25 [email or web address] [id number]) Pre-Anesthesia Assessment PAC Comment Unable to reach patient by phone Patient Information Reviewed Via Chart Review Seen Specialist in Last 12 Months Yes Specialist Seen General surgeon Preferred Language Yakut Visual Assist Glasses Comment Dentures Hx Anesthesia Reactions No Hx Family Anesthesia Reaction No Hx Malignant Hyperthermia No Hx Blood Transfusions No Hx Blood Transfusion Reaction No Anesthesia Review Requested No Crawler Crane 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 No Advance Directives on File No Power of Lab Technologist Yes Power of Lab Technologist Name Vishnu Gomez Power of Lab Technologist
--- NOTE | 2020-07-14 13:02 | OT.IPNOTE ---
Messaged left for the the kitchen to request weighted utensils for pt to use. Pt has right hand tremors.
--- NOTE | 2020-07-14 15:25 | PC.NURSE ---
Pt has been ambulating with staff in [place], [facility] and yessica is d/c'd with voids this shift. PO pain control oxy 5 q4h. Pt is doing well flatus not passed this shift, but BT increasedly active throughout shift. No nausea. Using light appropriately.
[2020-07-14] MEDS: MORPHINE 2 MG/ML INJ IV (21:45)
[2020-07-15] MEDS: ACETAMINOPHEN 325 MG TABLET 650 MG PO ×4 (00:13→20:43)
[2020-07-15] MEDS: ONDANSETRON 4 MG/2 ML INJ IV (00:25)
[2020-07-15 00:30] VITALS: BP 168/79; PULSE 98; RESP 16; TEMP 36.9; O2SAT 91
[2020-07-15] MEDS: MORPHINE 2 MG/ML INJ IV (00:33)
--- NOTE | 2020-07-15 00:42 | PC.NURSE ---
Patient c/o 8/10 pain and climbing to abd described as crampy. Abd distended, soft with + BT. Denies flatus. Dr. Valentine updated - order for additional dose of morphine as well as NPO with sips/chips for the the time being. Patient medicated and repositioned on her right side.
[2020-07-15 04:00] VITALS: BP 145/65; PULSE 88; RESP 18; TEMP 36.4; O2SAT 94
[2020-07-15 05:11] LABS: Add Manual Diff / Slide Review NO; Basophils Absolute Auto 0 /uL (0-100); Basophils Percent Auto 0.4 % (0-2); Eosinophils Absolute Auto 0 /uL (0-450); Eosinophils Percent Auto 0.2 % (2-4); Hematocrit 39.1 % (36-46); Hemoglobin 12.7 g/dL (12.0-16.0); Lymphocytes Absolute Auto 1500 /uL (1100-4500); Lymphocytes Percent Auto 15.8 % (25-40); Mean Corpuscular HGB Conc 32.5 % (30-36); Mean Corpuscular Volume 92.4 fL (80-100); Monocytes Absolute Auto 800 /uL (0-900); Monocytes Percent Auto 8.9 % (3-14); Neutrophils Absolute Auto 7100 /uL (1500-7000); Neutrophils Percent Auto 74.7 % (50-75); Platelet Count 206 X10^3/uL (150-400); Red Blood Cell Count 4.23 X10^6/uL (4.0-5.2); Red Cell Distribution Width 14.4 % (11.6-14.8); White Blood Cell Count 9.5 X10^3/uL (4.5-11.0)
[2020-07-15 05:18] LABS: BUN Creatinine Ratio 20.7 (6-22); Blood Urea Nitrogen 12 mg/dL (7-17); Calcium 8.8 mg/dL (8.4-10.2); Carbon Dioxide 29 mmol/L (22-32); Chloride 106 mmol/L (98-107); Estimated Glomerular Filt Rate > 60.0 mL/min (>60); Glucose 114 mg/dL (80-110); HEMOLYSIS < 15 (0-50); Magnesium 2.1 mg/dL (1.6-2.3); Phosphorous 3.5 mg/dL (2.8-4.1); Sodium 138 mmol/L (137-145)
[2020-07-15 08:00] VITALS: BP 161/84; PULSE 108; RESP 16; TEMP 36.8; O2SAT 99
[2020-07-15] MEDS: ENOXAPARIN 40 MG/0.4 ML SYRINGE SUBCUT (08:28)
[2020-07-15] MEDS: OXYCODONE IR 5 MG TABLET PO (08:28)
--- NOTE | 2020-07-15 09:24 | PC.NURSE ---
AM shift Pt reports difficulty with pain and unable to sleep much of NOC. Medicated with Oxycodone and few bites of yogurt this AM after up to BR to have loose BM. Pt BT+ lower quad are slightly hypoactive. and ABD is soft and distended. No nausea. Education provided for increasing ambulation for flatus pain. Pt understands, wishes to take nap this am and ambulate later this am. VSS. RA, lungs CTA. Midline incision with slightly more periincisional erythema this shift, compared to 24 hrs prior. OUTLET MANAGER no drainage. Call light in reach
--- NOTE | 2020-07-15 11:20 | PM.PNPO.1 ---
Subjective Subjective Date Patient Seen: 07/15/20 Time Patient Seen: 11:20 Interval history: Tolerated full liquids yesterday. Flatus and bowel movement. Worked with physical therapy did well. Minimal abdominal pain this morning. Exam Vital Signs (past 8 hours): - 07/15/20 04:00 07/15/20 08:00 Temperature 97.6 F 98.2 F Pulse Rate 88 108 H Respiratory Rate 18 16 Blood Pressure 145/65 H 161/84 H Pulse Oximetry 94 99 Oxygen Delivery Method Room Air Oxygen Flow Rate 0 Narrative Exam Narrative: General adult woman alert oriented no acute distress Abdomen midline incision clean dry intact upper aspect incision has been reinforced. Extremities warm well perfused. Objective Labs Result Diagrams: 07/15/20 04:43 07/15/20 04:43 Labs: Laboratory Results - last 24 hr 07/15/20 07/15/20 04:43 04:43 WBC 9.5 RBC 4.23 Hgb 12.7 Hct 39.1 MCV 92.4 MCH 30.0 MCHC 32.5 RDW 14.4 Plt Count 206 Neut % (Auto) 74.7 Lymph % (Auto) 15.8 L Otero % (Auto) 8.9 Eos % (Auto) 0.2 L Baso % (Auto) 0.4 Neut # (Auto) 7100 H Lymph # (Auto) 1500 Otero # (Auto) 800 Eos # (Auto) 0 Baso # (Auto) 0 Sodium 138 Potassium 4.0 Chloride 106 Carbon Dioxide 29 BUN 12 Creatinine 0.58 Estimated GFR > 60.0 BUN/Creatinine Ratio 20.7 Glucose 114 H Calcium 8.8 Phosphorus 3.5 Magnesium 2.1 PFSH Medical History (Updated 07/12/20 @ 08:23 by Claudia Murphy RN) Bruises easily Cardiac arrhythmia (~1985) Chicken pox Chronic back pain Elevated cholesterol Former smoker Groin pain Has a tremor Herpes History of adenomatous polyp of colon (~06/14/20) History of urinary self-catheterization (~1998) Post-menopausal Skin problem (~2018) Urinary retention Surgical History Anesthesia S/P breast lumpectomy Family History Father History of heart attack Colonic adenoma Mother Hypertension Stroke Sister Early onset Alzheimer's dementia Grandmother Alzheimer's disease Grandmother Leukemia Social History household members: family Smoking Status: Former smoker alcohol intake: current Assessment & Plan Post-op Postoperative Procedures: Procedures Operation Date: 07/13/20 07:45 Actual Procedures Side Surgeon galo Keys Colectomy Dereje Valentine MD Postoperative status narrative: 69-year-old woman postoperative day 2 status post sigmoid colectomy doing well. She has had return of bowel function she is ambulatory pain is fairly well controlled. -regular diet -wean IV pain meds -continue physical therapy -SCDs and prophylactic Lovenox. -anticipate discharge home tomorrow without needs Quality VTE Deep Vein Thrombosis/Pulmonary Embolism Present on Admission: No
--- NOTE | 2020-07-15 12:07 | PT.IPTN ---
Current Diagnoses Malignant neoplasm of colon, unspecified (07/13/20) Surgery Performed Operation Date: 07/13/20 07:45 Actual Procedures p Lap. Colectomy - Dereje Valentine MD Physical Therapy Treatment Note M2 PT-IP Current Condition Start: 07/14/20 11:35 Freq: NEEDED Status: Active Protocol: Document 07/14/20 10:15 AB (Rec: 07/14/20 12:09 AB [id number]) Physical Therapy Current Condition Current Condition Evaluation Date 07/14/20 Treatment Diagnosis colonic adenoma s/p colectomy; difficulty in walking Onset Date 07/13/20 Precautions Abdominal Surgery Precautions Log Roll,Lifting Restrictions, Gait Belt above Incisional Area M3 PT-IP Subjective Start: 07/14/20 11:35 Freq: NEEDED Status: Active Protocol: Document 07/15/20 11:50 CLB (Rec: 07/15/20 12:25 CLB [id number]) Subjective Physical Therapy Visit Type Type Treatment Note Visit Start Time 11:50 Visit Stop Time 12:07 Total Visit Minutes 17 Number of SLATE HANDLER Visits 1 Physical Therapy Visit Comments Patient Comments I'm feeling weak and don't want to over do it Therapy Pain Assessment Pain When Pain Assessed At Rest Pain Present Pain Present Pain Reported Location Abdomen Intensity 3 Scale Used Numeric (0 - 10) Pain Management Techniques Modification of Treatment,Re- positioning,Timing of Activity with Medications M4 PT-IP Mobility and Gait Start: 07/14/20 11:35 Freq: NEEDED Status: Active Protocol: Document 07/15/20 11:50 CLB (Rec: 07/15/20 12:25 CLB [id number]) PT-Bed Mobility Assessment Rolling Type of Rolling Log Rolling Level of Assist Standby Assistance Supine to Sit Supine to Sit Standby Assistance Scooting Scooting to Edge of Bed Standby Assistance PT-Transfer Assessment Sit to and From Stand Sit to and from Stand Standby Assistance,1 Person Assistance,Use of Upper Extremities Equipment Transfer Assistive Device Gait Belt,Front Wheeled Walker Orthotic/Prosthetic Devices or Brace: No Transfers Transfer Destination Chair,Toilet Transfer Ability Level of Assist Standby Assistance,1 Person Assistance,Use of Upper Extremities Comments Mobility Comments Pt in bed needing to use BR, pt SBA for LR, sidelying to sit then scooting to stand with use of UE's. Pt ambulated SBA to BR using wall rail to sit SBA. Pt able to doff/jackson brief and perform pericare. Pt the ambulated to sink requiring SBA for standing balance at sink. Pt then ambulated in room ~80ft w/FWW/ SBA. After ambulation pt sat in chair. Pt left in chair with all needs within reach. Informed RN of pt mobility. Gait Assessment Gait Gait Assistance Required: Standby Assistance,1 Person Assist Distance (Feet) 80 Able to Maintain Weight Bearing Status Yes During Gait Assistive Devices Assistive Device Gait Belt,Front Wheeled Walker Orthotic/Prosthetic Devices or Brace: No Gait Deviations General Gait Pattern Decreased Stride Length, Decreased Feet Clearance Factors Limiting Gait Function Factors Limiting Gait Function Decreased Activity Tolerance, Decreased Strength,Pain M5 PT-IP Objective Assessments Start: 07/14/20 11:35 Freq: NEEDED Status: Active Protocol: Document 07/14/20 10:15 AB (Rec: 07/14/20 12:09 AB [id number]) Orientation Orientation/Cognition Level of Alertness Alert Orientation Name,Place,Situation Language Function Ability No Deficits Noted Memory Description Short Term Impaired Gross Range of Motion Lower Extremity ROM Assessment Within Functional Limits Strength Lower Extremity Strength Hip 4-/5 Knee 4+/5 Coordination Assessment Gross Coordination Gross Coordination WNL Sensation Assessment Sensation Gross Sensation WNL Muscle Tone Muscle Tone WNL Yes M6 PT-IP Treatment Start: 07/14/20 11:35 Freq: NEEDED Status: Active Protocol: Document 07/14/20 10:15 AB (Rec: 07/14/20 12:09 AB [id number]) Physical Therapy Treatment Education Education Provided Precautions,Safety M7 PT-IP Assessment and Plan Start: 07/14/20 11:35 Freq: NEEDED Status: Active Protocol: Document 07/15/20 11:50 CLB (Rec: 07/15/20 12:25 CLB [id number]) PT Summary Assessment and Plan Potential Rehabilitation Potential Good Status of Condition at Evaluation Stable Summary Impairments Pain,ROM,Strength,Balance,Bed Mobility,Transfers,Gait, Activity Tolerance Assessment Summary Pt improving with mobility requiring SBA for bed mobility , sit-stand and gait. Pt c/o feeling weak with increased pain and bloating today. Pt able to increase gait tolerance to ~80ft. Pt will d/ c home with daughter to assist . Goals Bed Mobility Goal Independent Transfer Goal Independent,Front Wheeled Walker Gait Goal Independent,Front Wheel Walker Gait Distance 200 Other Goals improve ambulation without AD 150 ft SBA up/down 1 step using FWW/ without AD; up/down 6 steps L rail and 9 steps R rail SBA Days to Meet Goals 10 Frequency of Treatment Frequency Of Treatment Once a Day Treatment Plan Physical Therapy Treatment Plan Bed Mobility Training,Transfer Training,Gait Training, Therapeutic Exercise,Balance Retraining,Post Op Education, Discharge Planning,Hot or Cold Pack,Neuromuscular Re-ed, Coordination Retraining Recommendations To Nursing Amount of Assist Needed 1 Person Assist Discharge Recommendations PT Discharge Recommendations Home with Assistance,Home Health Equipment Needed for Home Before FWW if not safe without AD Discharge Transportation Needs at Discharge Private Vehicle
--- NOTE | 2020-07-15 12:57 | OT.IPNOTE ---
Attempted to see pt for OT treatment, pt states just wanting to sleep for now. Pt did say that the weighted utensils appeared to be helpful during self-feeding for the little time that she used it.
[2020-07-15 16:10] VITALS: BP 160/77; PULSE 84; RESP 18; TEMP 36.6; O2SAT 96
[2020-07-15 20:02] VITALS: BP 148/84; PULSE 79; RESP 17; TEMP 37.3; O2SAT 96
--- NOTE | 2020-07-15 20:05 | PC.NURSE ---
Evening Shift Note: Pt with neuro intact. Reports achiness at 1-07/14. Pain managed with tylenol. Pt received on RA. Lungs CTA. Denies SOB. Pt with HRR, 70s. Pt is mildly hypertensive. SBP 140s-160. Denies chest pain or pressure. Pt denies nausea. Pt reports limited appetite, but was able to eat small amount of dinner. Pt reports liquid stools after eating. Good BTs in all quadrants. Mild distention in abdomen. Pt is voiding adequate volume of clear yellow urine. Ambulating to bathroom. Pt is ambulating with FWW, SB assist. Pt is steady on her feet. Surgical incision is CDI. Small amount of bruising noted on periwound tissue, no erythema, well-approximated with surgical glue. Pt with call light in reach, instructed to call with requests or for tranferring. Will continue to monitor, notify MD with changes.
[2020-07-16] MEDS: ACETAMINOPHEN 325 MG TABLET 650 MG PO ×2 (02:25→06:38)
--- NOTE | 2020-07-16 02:44 | PC.NURSE ---
Addendum entered by Kailey Thomas R.N. 07/16/20 05:05: Pt OOB with walker and standby assistance. Pt able to get OOB without difficulty independently. Steady on feet. Pt states she plans on discharging to daughter's home today. Patient states that pain is 1-2/10, Just a dull ache. Abdominal incision and lap sites intact and well approximated with surgical glue. Periwound area surrounded by ecchymosis. Original Note: 0215 Pt awakened for assessment. States she has been sleeping well. Pt denies any nausea. Passing large amounts of flatus. Pt states she has loose stools after eating. Pt requesting Acetaminophen for abdominal midline incision pain at 1-2/10. States she is much improved from last night. Pt encouraged to cough and deep breath q1h while awake and to continue with calf pumping q1h while awake. Rational discussed for each. Pt agreeable for both. Pt requesting that SCDs be removed at this time. Pt ambulated from bed to bathroom with walker. Steady on feet. Returned to bed and able to do so independently.
[2020-07-16 02:45] VITALS: BP 147/77; PULSE 82; RESP 18; TEMP 36.8; O2SAT 95
[2020-07-16 05:05] VITALS: BP 150/76; PULSE 74; RESP 16; TEMP 36.5; O2SAT 94
[2020-07-16 05:14] LABS: Add Manual Diff / Slide Review NO; Basophils Absolute Auto 0 /uL (0-100); Basophils Percent Auto 0.4 % (0-2); Eosinophils Absolute Auto 300 /uL (0-450); Eosinophils Percent Auto 3.4 % (2-4); Hemoglobin 12.4 g/dL (12.0-16.0); Lymphocytes Absolute Auto 1700 /uL (1100-4500); Lymphocytes Percent Auto 21.4 % (25-40); Mean Corpuscular HGB Conc 32.6 % (30-36); Mean Corpuscular Volume 92.2 fL (80-100); Monocytes Absolute Auto 900 /uL (0-900); Monocytes Percent Auto 11.4 % (3-14); Neutrophils Absolute Auto 5000 /uL (1500-7000); Neutrophils Percent Auto 63.4 % (50-75); Platelet Count 202 X10^3/uL (150-400); Red Blood Cell Count 4.13 X10^6/uL (4.0-5.2); Red Cell Distribution Width 14.1 % (11.6-14.8)
[2020-07-16 05:17] LABS: BUN Creatinine Ratio 18.3 (6-22); Blood Urea Nitrogen 11 mg/dL (7-17); Calcium 8.6 mg/dL (8.4-10.2); Carbon Dioxide 31 mmol/L (22-32); Chloride 106 mmol/L (98-107); Estimated Glomerular Filt Rate > 60.0 mL/min (>60); Glucose 98 mg/dL (80-110); HEMOLYSIS < 15 (0-50); Magnesium 2.1 mg/dL (1.6-2.3); Phosphorous 3.1 mg/dL (2.8-4.1); Potassium 3.4 mmol/L (3.4-5.1); Sodium 136 mmol/L (137-145)
--- NOTE | 2020-07-16 08:12 | DIET.PN ---
Dietary Progress Note 69y F admitted for planned sigmoid colectomy. Pt is tolerating diet, passing flatus and has no s/sx of N/V/bloating. Pt received d/c nutrition handouts during pre-op nutrition visit for slow advancement back to high fiber diet c priority of protein intake to support post-surgical state.
--- NOTE | 2020-07-16 09:07 | PC.NURSE ---
Addendum entered by Rebeka Hall R.N. 07/16/20 14:31: PT taken to private vehicle. d/c teaching completed. Daughter taking patient home and has FWW for home use. Original Note: AM shift Pt is feeling well this am, reports minimal pain, continued Flatus and BM improvement to pain. SBA with ambulation. No nausea, no vomiting. Pt expresses some anxiety for d/c home, Are you sure I am ready Reassured and encouraged continued indep care. Discharge planning initiated and Pt updating family for plans for d/c. BT+ flatus+ no nausea. ABD less distended, midline and lap sites look good with no increased pain or discharge. 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
--- NOTE | 2020-07-16 09:58 | PT.IPTN ---
Current Diagnoses Malignant neoplasm of colon, unspecified (07/13/20) Surgery Performed Operation Date: 07/13/20 07:45 Actual Procedures p Lap. Colectomy - Dereje Valentine MD Physical Therapy Treatment Note M2 PT-IP Current Condition Start: 07/14/20 11:35 Freq: NEEDED Status: Active Protocol: Document 07/14/20 10:15 AB (Rec: 07/14/20 12:09 AB [id number]) Physical Therapy Current Condition Current Condition Evaluation Date 07/14/20 Treatment Diagnosis colonic adenoma s/p colectomy; difficulty in walking Onset Date 07/13/20 Precautions Abdominal Surgery Precautions Log Roll,Lifting Restrictions, Gait Belt above Incisional Area M3 PT-IP Subjective Start: 07/14/20 11:35 Freq: NEEDED Status: Active Protocol: Document 07/16/20 09:38 CLB (Rec: 07/16/20 12:46 CLB [id number]) Subjective Physical Therapy Visit Type Type Treatment Note Visit Start Time 09:38 Visit Stop Time 09:58 Total Visit Minutes 20 Number of SUGARCANE PLANTER Visits 2 Therapy Pain Assessment Pain When Pain Assessed During Mobility Pain Present Pain Present Pain Reported Location Abdomen Intensity 2 Scale Used Numeric (0 - 10) Pain Management Techniques Modification of Treatment,Re- positioning,Timing of Activity with Medications M4 PT-IP Mobility and Gait Start: 07/14/20 11:35 Freq: NEEDED Status: Active Protocol: Document 07/16/20 09:38 CLB (Rec: 07/16/20 12:46 CLB [id number]) PT-Transfer Assessment Sit to and From Stand Sit to and from Stand Standby Assistance,1 Person Assistance,Use of Upper Extremities Equipment Transfer Assistive Device Gait Belt,Front Wheeled Walker Orthotic/Prosthetic Devices or Brace: No Transfers Transfer Destination Chair,Wheelchair Transfer Technique ambulated using FWW Transfer Ability Level of Assist Standby Assistance,1 Person Assistance,Use of Upper Extremities Comments Mobility Comments Pt in chair upon arrival. Pt stood SBA and ambulated to guillen and sat in WC SBA. Pt then rode to therapy stairs. Pt stood SBA and ambulated w/ FWW to stairs. Pt climbed three stairs three time with use of right rail SBA. Pt returned to room in WC and ambulated in guillen ~75ft w/FWW/ SBA. Pt daughter will pick her up a FWW as pt prefers to use FWW rather than trial 4WW or cane. Left pt in care of OT upon room departure. Gait Assessment Gait Gait Assistance Required: Standby Assistance,1 Person Assist Distance (Feet) 75 Able to Maintain Weight Bearing Status Yes During Gait Assistive Devices Assistive Device Gait Belt,Front Wheeled Walker Orthotic/Prosthetic Devices or Brace: No Gait Deviations General Gait Pattern Decreased Stride Length, Decreased Feet Clearance Factors Limiting Gait Function Factors Limiting Gait Function Decreased Activity Tolerance, Decreased Strength,Pain Stair Climbing Assessment Evaluation Level of Assist On Stairs Standby Assistance,1 Person Assistance Devices Stair Climbing Assistive Devices Front Wheel Walker,Right Railing Technique/Endurance Stair Climbing Direction Ascend and Descend Number of Steps Climbed 3 Stair Climbing Set # Repetitions (reps) 3 Comments Stair Climbing Comments Pt also climbed one platform step with FWW as pt has one step to get onto deck. M5 PT-IP Objective Assessments Start: 07/14/20 11:35 Freq: NEEDED Status: Active Protocol: Document 07/14/20 10:15 AB (Rec: 07/14/20 12:09 AB [id number]) Orientation Orientation/Cognition Level of Alertness Alert Orientation Name,Place,Situation Language Function Ability No Deficits Noted Memory Description Short Term Impaired Gross Range of Motion Lower Extremity ROM Assessment Within Functional Limits Strength Lower Extremity Strength Hip 4-/5 Knee 4+/5 Coordination Assessment Gross Coordination Gross Coordination WNL Sensation Assessment Sensation Gross Sensation WNL Muscle Tone Muscle Tone WNL Yes M6 PT-IP Treatment Start: 07/14/20 11:35 Freq: NEEDED Status: Active Protocol: Document 07/14/20 10:15 AB (Rec: 07/14/20 12:09 AB [id number]) Physical Therapy Treatment Education Education Provided Precautions,Safety M7 PT-IP Assessment and Plan Start: 07/14/20 11:35 Freq: NEEDED Status: Active Protocol: Document 07/16/20 09:38 CLB (Rec: 07/16/20 12:46 CLB [id number]) PT Summary Assessment and Plan Potential Rehabilitation Potential Good Status of Condition at Evaluation Stable Summary Impairments Pain,ROM,Strength,Balance,Bed Mobility,Transfers,Gait, Activity Tolerance Progress Towards Goals Progressing Toward Goals Assessment Summary Pt is SBA for all mobility. Pt is able to climb three sets of three steps SBA with use of one rail. Pt prefers to use FWW at this time and her daughter will get her a walker for home use. Goals Bed Mobility Goal Independent Transfer Goal Independent,Front Wheeled Walker Gait Goal Independent,Front Wheel Walker Gait Distance 200 Other Goals improve ambulation without AD 150 ft SBA up/down 1 step using FWW/ without AD; up/down 6 steps L rail and 9 steps R rail SBA Days to Meet Goals 10 Frequency of Treatment Frequency Of Treatment Once a Day Treatment Plan Physical Therapy Treatment Plan Bed Mobility Training,Transfer Training,Gait Training, Therapeutic Exercise,Balance Retraining,Post Op Education, Discharge Planning,Hot or Cold Pack,Neuromuscular Re-ed, Coordination Retraining Recommendations To Nursing Amount of Assist Needed 1 Person Assist Discharge Recommendations PT Discharge Recommendations Home with Assistance,Home Health Equipment Needed for Home Before FWW if not safe without AD Discharge Transportation Needs at Discharge Private Vehicle
--- NOTE | 2020-07-16 10:35 | OT.IP.TRT ---
Current Diagnoses Malignant neoplasm of colon, unspecified (07/13/20) Surgery Performed Operation Date: 07/13/20 07:45 Actual Procedures p Lap. Colectomy - Dereje Valentine MD Occupational Therapy Treatment Note M2 OT-IP Current Condition Start: 07/14/20 12:41 Freq: Status: Active Protocol: Document 07/14/20 09:31 [facility] (Rec: 07/14/20 12:57 [facility] [id number]) Occupational Therapy Current Condition Current Condition Evaluation Date 07/14/20 Treatment Diagnosis s/p sigmoid colectomy, decreased mobility Diagnosis Onset Date 07/13/20 Post Operative Precautions Abdominal Surgery Precautions Log Roll,Lifting Restrictions, Gait Belt above Incisional Area M3 OT- IP Subjective and Pain Start: 07/14/20 12:41 Freq: Status: Active Protocol: Document 07/16/20 10:37 [facility] (Rec: 07/16/20 10:46 [facility] [id number]) OT- Subjective Occupational Therapy Visit Type Type Treatment Note Visit Start Time 09:25 Visit Stop Time 10:35 Total Visit Minutes 60 Notes Pt seen for split treatment [id number] and [id number]. Occupational Therapy Visit Comments Patient Comments Pt wanting to shower. Patient/Caregiver Goals TO go home. OT Pain Assessment Pain When Pain Assessed At Rest Pain Present Pain Present Pain Reported Location Abdomen Intensity 1 Scale Used Numeric (0 - 10) M4 OT- IP ADL's Start: 07/14/20 12:41 Freq: Status: Active Protocol: Document 07/16/20 10:37 [facility] (Rec: 07/16/20 10:46 [facility] [id number]) OT ADL-Grooming General Evaluation Grooming Ability Independent Areas Needing Assistance Retrieving/Set-up of Grooming Items OT ADL-Dressing General Eval Upper Body Dressing Ability Independent Lower Body Dressing Ability Standby Assistance Comments OT Dressing Comments Pt issued change consultant to assist to increased ease for LB dressing needs. OT ADL-Toileting General Evaluation Toileting Ability Independent Comments OT Toileting Comments Pt states able to push on the ledge to the right in her bathroom at home and able to hold to FWW to assist to stand. Pt aware is having more trouble at home to consider a BSC or grab bars. OT ADL-Bathing Bathing Type Bathing Type Shower General Evaluation Bathing Ability Minimal Assistance Areas Needing Assistance Wash/Dry Back Comments OT Bathing Comments Pt seated for most of the task and would benefit from a shower chair at home and hand held shower spray. Pt states will just sponge off initially at home and will figure it out with her family. M5 OT- IP IADL's Start: 07/14/20 12:41 Freq: Status: Active Protocol: Document 07/14/20 09:31 [facility] (Rec: 07/14/20 12:57 [facility] [id number]) OT-Instrumental Activities of Daily Living Home Safety Awareness Awareness of Need for Assistance at Home Good Awareness Ability to Problem Solve Emergency Able to Problem Solve Situations Medication Management Medication Management Comments No deficits noted at this time , pt has a supportive family to assist her as needed. Money Management Money Management Comments No deficits noted at this time , pt has a supportive family to assist her as needed. Meal Preparation Meal Preparation Caregiver Provides Assist Internal Communications Manager Internal Communications Manager Caregiver Provides Assist M6 OT- IP Functional Cognition Start: 07/14/20 12:41 Freq: Status: Active Protocol: Document 07/16/20 10:37 [facility] (Rec: 07/16/20 10:46 [facility] [id number]) Cognitive Factors Limiting Selfcare Function Cognitive Ability Level of Alertness Alert Patient Orientation Name,Age,Birthday,Month,Date, Year,Day of Week,Place, Situation Attention Span Ability Capable of Focused Attention, Capable of Sustained Attention Ability to Follow Commands Able to Follow One Step Commands Safety Awareness Underestimates Need for Assistance Cognitive Comments Cognitive Assessment Comments Pt appears a little groggy for medications and having trouble at time problem solving and making decisions. M7 OT- IP Mobility and Balance Start: 07/14/20 12:41 Freq: Status: Active Protocol: Document 07/16/20 10:37 [facility] (Rec: 07/16/20 10:46 [facility] [id number]) OT-Transfer Assessment Sit to and From Stand Sit to and from Stand Standby Assistance Transfers Transfer Ability Standby Assistance Technique Transfer Destination Bed,Chair,Shower Stall,Toilet Transfer Technique Stand Step Pivot Devices Transfer Assistive Devices Gait Belt,Front Wheeled Walker OT- Gait Assessment Comments Gait Ability Comments SBA with FWW OT- Balance Assessment Sitting Balance and Reactions Static Sitting Balance Ability Normal Dynamic Sitting Balance Ability Normal Standing Balance and Reactions Static Standing Balance Ability Good M8 OT- IP Objective Assessments Start: 07/14/20 12:41 Freq: Status: Active Protocol: Document 07/14/20 09:31 [facility] (Rec: 07/14/20 12:57 [facility] [id number]) OT Gross Range of Motion Upper Extremity Range of Motion Assessment Within Functional Limits OT Strength Upper Extremity Strength Assessment Within Functional Limits OT-Muscle Tone Assessment Muscle Tone WNL Yes M9 OT- IP Assessment and Plan Start: 07/14/20 12:41 Freq: Status: Active Protocol: Document 07/16/20 10:37 [facility] (Rec: 07/16/20 10:46 [facility] [id number]) OT Summary Assessment and Plan Potential Rehabilitation Potential Good Analytic Complexity at Evaluation Low Summary Assessment Summary Pt able to tolerate shower today. Pt aware on suggestions of getting a FWW, shower chair, hand held shower spray and was issued LB dressing equipment. Pt to have supportive family to assist with her needs at home. Goals Grooming Goal Independent Dressing Goal Independent Toileting Goal Independent Bathing Goal Independent Toilet Transfer Goal Independent Shower Transfer Goal Independent Days to Meet Goals 2 Frequency of Treatment Frequency Of Treatment Once a Day Treatment Plan OT Treatment Plan Patient/Family Education, Discharge Planning Discharge Recommendations OT Discharge Recommendations Home with Assistance Home Equipment Needs fww, shower chair, hand held shower spray Transportation Needs at Discharge Private Vehicle
--- NOTE | 2020-07-16 10:42 | P.DS_ITS ---
History of Present Illness History of Present Illness Date Patient Seen: 07/13/20 Chief complaint: COLECTOMY Narrative: Pt admitted for sigmoid colectomy for sessile polyp with high grade dysplasia here for sigmoid colectomy. Screening colonoscopy June 14, 2020 demonstrated a 3 cm sessile polyp within the descending colon at 35 cm from the anal verge. Approximately 90% of the polyp was removed via snare, pathology demonstrates focal high-grade dysplasia. The remainder of the colonoscopy was unremarkable. No personal or family history of malignancy. She has no significant comorbidities. No prior abdominal surgery. She is not on anticoagulation Discharge Providers Provider Date of admission: 07/13/20 06:28 Discharge Date: 07/16/20 Primary care physician: Patrick De Jesus MD Consults: 07/13/20 12:20 Consult to Discharge Planning Routine Comment: Consult to Occupational Therapy Evaluate & Treat Comment: Physician Instructions: Evaluate and treat Consult to Physical Therapy Evaluate & Treat Comment: Physician Instructions: Evaluate and Treat Discharge provider: Nicolasa Chapin MD Summary Hospital Course Discharge Diagnosis: Sessile polyp with high-grade dysplasia Hospital Course: Patient was admitted for sigmoid colectomy, tolerated surgery well, had appropriate progression postoperatively, and was discharged when she was tolerating a diet and passing stool Status at Discharge Cognitive/behavioral status at discharge: at baseline, oriented Functional status at discharge: uses cane/walker Overall status at discharge: patient is progressing back to baseline Time Spent with Patient Time spent: Greater than 30 minutes Exam Vital Signs (past 8 hours): - 07/16/20 02:45 07/16/20 05:05 Temperature 98.2 F 97.7 F Pulse Rate 82 74 Respiratory Rate 18 16 Blood Pressure 147/77 H 150/76 H Pulse Oximetry 95 94 Oxygen Delivery Method Room Air Oxygen Flow Rate 0 Narrative Exam Narrative: General adult woman alert oriented no acute distress Abdomen midline incision clean dry intact upper aspect incision has been reinforced. Extremities warm well perfused. Objective Labs Result Diagrams: 07/16/20 04:47 07/16/20 04:47 Labs: Laboratory Results - last 24 hr 07/16/20 07/16/20 04:47 04:47 WBC 8.0 RBC 4.13 Hgb 12.4 Hct 38.0 MCV 92.2 MCH 30.0 MCHC 32.6 RDW 14.1 Plt Count 202 Neut % (Auto) 63.4 Lymph % (Auto) 21.4 L [place] % (Auto) 11.4 Eos % (Auto) 3.4 Baso % (Auto) 0.4 Neut # (Auto) 5000 Lymph # (Auto) 1700 [place] # (Auto) 900 Eos # (Auto) 300 Baso # (Auto) 0 Sodium 136 L Potassium 3.4 Chloride 106 Carbon Dioxide 31 BUN 11 Creatinine 0.60 Estimated GFR > 60.0 BUN/Creatinine Ratio 18.3 Glucose 98 Calcium 8.6 Phosphorus 3.1 Magnesium 2.1 PFSH Medical History Bruises easily Cardiac arrhythmia (~1985) Chicken pox Chronic back pain Elevated cholesterol Former smoker Groin pain Has a tremor Herpes History of adenomatous polyp of colon (~06/14/20) History of urinary self-catheterization (~1998) Post-menopausal Skin problem (~2018) Urinary retention Surgical History Anesthesia S/P breast lumpectomy Family History Father History of heart attack Colonic adenoma Mother Hypertension Stroke Sister Early onset Alzheimer's dementia Grandmother Alzheimer's disease Grandmother Leukemia Social History household members: family Smoking Status: Former smoker alcohol intake: current Discharge Assessment & Plan Assessment and Plan Assessment: 69-year-old woman recovering well from sigmoid collect Plan of Treatment: Discharge home with plans to follow-up with Dr. Barth in clinic Discharge Plan Discharge Plan Patient Disposition: Home Discharge orders & Medications Prescriptions: New docusate sodium [Colace] 100 mg capsule 100 mg PO BID Qty: 30 RF: 0 oxycodone 5 mg tablet 5 mg PO Q6H PRN (Reason: pain) Qty: 30 RF: 0 acetaminophen [Tylenol] 325 mg capsule 650 mg PO QID PRN (Reason: pain) Qty: 60 RF: 0 Continued turmeric root extract 500 mg capsule 500 mg PO DAILY RF: 0 multivitamin Tablet 1 tab PO DAILY RF: 0 ginseng 500 mg capsule 500 mg PO .QOTHERWEEK RF: 0 Follow up/Referrals: Patrick De Jesus MD [Primary Care Provider] - Dereje Barth MD [Physician] - 07/29/20 10:15 am (appt:07/29 @ 10:[address] barth ) Diet/Activity/Treatments Diet: Regular Activity: No lifting >20 lbs x 4 weeks. No [address] while taking narcotics. Skin/Wound/Dressing Care Skin care: Ok to shower but avoid soaking the incision in water until follow up. Report to your healthcare provider any signs of infection, such as:: chills, fever, increased pain, unusual drainage and unusual redness Visit Report/Discharge Packet Instructions: DI for Colectomy Discharge Data Primary Care Provider: Patrick De Jesus VTE Deep Vein Thrombosis/Pulmonary Embolism Present on Admission: No
[2020-07-16] MEDS: ENOXAPARIN 40 MG/0.4 ML SYRINGE SUBCUT (11:54)
--- NOTE | 2020-07-16 15:08 | CM.DPC ---
DCP: continued: case received, EMR reviewed. Dr. Chapin was here this morning and ok'd pt for d/c to home setting with family care and followup in clinic with Dr. Valentine on 07/29. PT/OT worked with pt. Went to room to check in with pt. She has already left for home in company of her family.
== END 2020-07-16 14:31 | disposition home or self-care (01) | DRG 331 ==
LOC: AC 06:55 → ICU 11:35
PROVIDERS: Admitting Provider Surgery; PCP Internal Medicine; Referring Provider Internal Medicine; Visit Provider Surgery
PROC: 0DTE0ZZ Resection of Large Intestine, Open Approach (ICD-10-PCS; principal; 2020-07-13 07:45)
DX: D12.5 Benign neoplasm of sigmoid colon (principal); Z20.822 Contact with and (suspected) exposure to COVID-19; Z87.891 Personal history of nicotine dependence
CPT/HCPCS: 36415; 44204; 80048; 82962; 83735; 84100; 85025; 87635; 87797; 97116; 97161; 97165; 97530; 97535; C9803; C9290; J0131; J1100; J1170; J1650; J2250; J2270; J2405; J2543; J2704; J3010

== ENCOUNTER → 2020-07-29 07:36 | Outpatient (CLI) | payer MEDICARE, SELFPAY ==
[2020-07-16 13:19] VITALS: BMI 25.3
[2020-07-29] MEDS: COVID-19 VACC #2, MRNA(MOD) 100 MCG/0.5 ML VIAL IM (07:43)
== END ==
PROVIDERS: PCP Internal Medicine; Visit Provider Internal Medicine
DX: Z23 Encounter for immunization (principal)
CPT/HCPCS: 0012A; 91301

== ENCOUNTER → 2021-08-17 09:56 | Outpatient (CLI) | payer MEDICARE, SELFPAY ==
[2020-07-16 13:19] VITALS: BMI 25.3
--- NOTE | 2021-08-17 09:58 | DI.MG.S_ITS ---
BILATERAL DIGITAL SCREENING MAMMOGRAM 3D/2D WITH CAD: 08/17/2021 CLINICAL: Routine screening. Comparison is made to exams dated: 07/05/2020 mammogram, 09/02/2018 mammogram - [facility], and 03/17/2014 mammogram - [facility]. The tissue of both breasts is extremely dense, which lowers the sensitivity of mammography. Current study was also evaluated with a Computer Aided Detection (CAD) system. There are mole markers on both breasts. No significant masses, calcifications, or other findings are seen in either breast. There has been no significant interval change. IMPRESSION: NEGATIVE There is no mammographic evidence of malignancy. A 1 year screening mammogram is recommended. This exam was interpreted at Station ID: [id number]. NOTE: For mammograms, a report in lay terms will be sent to the patient. Approximately 15% of breast malignancies will not be visualized mammographically. In the management of a palpable breast mass, a negative mammogram must not discourage biopsy of a clinically suspicious lesion. Electronically Signed By: Bryan paz/lilliam:08/17/2021 10:23:54 letter sent: Normal Exam ACR BI-RADS Category 1: Negative 3341F
== END ==
PROVIDERS: PCP Internal Medicine; Referring Provider Internal Medicine; Visit Provider Internal Medicine
DX: Z12.31 Encounter for screening mammogram for malignant neoplasm of breast (principal)
CPT/HCPCS: 77063; 77067

== ENCOUNTER → 2021-08-29 08:52 | Outpatient (CLI) | payer MEDICARE, SELFPAY ==
[2020-07-16 13:19] VITALS: BMI 25.3
[2021-08-29 09:48] LABS: Add Manual Diff / Slide Review NO; Basophils Absolute Auto 0 /uL (0-100); Basophils Percent Auto 0.5 % (0-2); Eosinophils Absolute Auto 100 /uL (0-450); Hematocrit 37.2 % (36-46); Hemoglobin 12.2 g/dL (12.0-16.0); Lymphocytes Absolute Auto 1500 /uL (1100-4500); Lymphocytes Percent Auto 33.2 % (25-40); Mean Corpuscular HGB Conc 32.8 % (30-36); Mean Corpuscular Hemoglobin 29.8 PG (26-34); Mean Corpuscular Volume 90.6 fL (80-100); Monocytes Absolute Auto 600 /uL (0-900); Monocytes Percent Auto 12.7 % (3-14); Neutrophils Absolute Auto 2400 /uL (1500-7000); Neutrophils Percent Auto 51.6 % (50-75); Platelet Count 219 X10^3/uL (150-400); Red Cell Distribution Width 14.5 % (11.6-14.8); White Blood Cell Count 4.6 X10^3/uL (4.5-11.0)
[2021-08-29 10:13] LABS: Alanine Aminotransferase 13 IU/L (<35); Albumin 4.1 g/dL (3.5-5.0); Albumin Globulin Ratio 1.3 (1.0-2.8); Alkaline Phosphatase 56 U/L (38-126); Aspartate Aminotransferase 25 IU/L (14-36); BUN Creatinine Ratio 20.6 (6-22); Bilirubin Total 0.3 mg/dL (0.2-1.3); Blood Urea Nitrogen 14 mg/dL (7-17); Carbon Dioxide 27 mmol/L (22-32); Chloride 106 mmol/L (98-107); Cholesterol 243 mg/dL (140-199); Estimated Glomerular Filt Rate > 60.0 mL/min (>60); Globulin 3.2 g/dL (1.7-4.1); Glucose 92 mg/dL (80-110); HDL Cholesterol 70 mg/dL (40-60); HEMOLYSIS < 15 (0-50); LDL Cholesterol Calculated 162 mg/dL (<100); Potassium 3.9 mmol/L (3.4-5.1); Sodium 139 mmol/L (137-145); Total Protein 7.3 g/dL (6.3-8.2); Triglycerides 57 mg/dL (35-150)
[2021-08-29 10:48] LABS: TSH w/ Reflex to FT4 0.81 uIU/mL (0.47-4.68)
== END ==
PROVIDERS: PCP Internal Medicine; Referring Provider Internal Medicine; Visit Provider Internal Medicine
DX: E78.00 Pure hypercholesterolemia, unspecified (principal); Z86.010 Personal history of colon polyps; R42 Dizziness and giddiness; I10 Essential (primary) hypertension; R41.3 Other amnesia
CPT/HCPCS: 36415; 80053; 80061; 84443; 85025

== ENCOUNTER → 2022-05-17 11:51 | Outpatient (CLI) | payer MEDICARE, SELFPAY ==
[2020-07-16 13:19] VITALS: BMI 25.3
[2022-05-17 13:00] LABS: COVID19 -Nasal RAPID Negative (Negative)
== END ==
PROVIDERS: PCP Internal Medicine; Visit Provider Surgery
DX: Z01.812 Encounter for preprocedural laboratory examination (principal); Z20.822 Contact with and (suspected) exposure to COVID-19
CPT/HCPCS: 87635; C9803

== ENCOUNTER 2022-05-18 11:48 | Day surgery (SDC) | payer MEDICARE, SELFPAY ==
[2020-07-16 13:19] VITALS: BMI 25.3
[2022-05-18] MEDS: LACTATED RINGERS 1,000 ML 84 ML IV (13:25)
[2022-05-18 13:27] VITALS: BMI 24.7
[2022-05-18 13:38] VITALS: BP 130/74; PULSE 70; RESP 16; TEMP 36.7; O2SAT 97
--- NOTE | 2022-05-18 13:39 | SUR.PREOP ---
Volunteer reported that patient was in waiting room and started to not feel well and feeling weak. This RN checked on patient who stated she felt weak, exhausted and request a sip of water. Pt brought back, got in stretcher. Warm blankets given. VSS 130/74 BP 70 HR. IV started and IVF started. Pt stated she felt better in stretcher and lying down. Resting at this time.
--- NOTE | 2022-05-18 15:49 | PM.HP.1 ---
History of Present Illness History of Present Illness Date Patient Seen: 05/18/22 Time Patient Seen: 15:49 Chief complaint: SCREENING COLONOSCOPY Narrative: Nora is a 71-year-old woman who had a sigmoid colon resection by Dr. 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 She has not had a follow-up colonoscopy since then. Patient History Medical History (Updated 08/23/21 @ 10:24 by Patrick De Jesus MD) Bruises easily Cardiac arrhythmia (~1985) Chronic back pain Elevated cholesterol Former smoker Groin pain Herpes High grade dysplasia in colonic adenoma History of adenomatous polyp of colon (~06/14/20) History of urinary self-catheterization (~1998) Post-menopausal Skin problem (~2018) Urinary retention Surgical History (Updated 08/23/21 @ 10:24 by Patrick De Jesus MD) Anesthesia S/P breast lumpectomy S/P partial colectomy (~07/2020) Family & Social History Family History Father History of heart attack Colonic adenoma Mother Hypertension Stroke Sister Early onset Alzheimer's dementia Grandmother Alzheimer's disease Grandmother Leukemia Social History: household members family Tobacco & Substance use: Tobacco type cigarettes Smoking Status Former smoker alcohol intake current alcohol intake frequency a few times a week Substance Use Type marijuana Meds Home Medications and Allergies Home Medications Medication Instructions Recorded Confirmed Type ginseng 500 mg capsule 500 mg PO .QOTHERWEEK 07/31/19 05/18/22 History multivitamin 1 tab PO DAILY 07/31/19 05/18/22 History acetaminophen 325 mg capsule 650 mg PO QID PRN pain #60 caps 07/15/20 05/18/22 Rx (Tylenol) Allergies Allergy/AdvReac Type Severity Reaction Status Date / Time pneumococcal vaccine AdvReac Severe swelling Verified 05/18/22 13:26 [From Pneumovax-23] injection site DEET Allergy Severe Swelling Uncoded 08/23/21 10:13 Exam Vital Signs (past 8 hours): - 05/18/22 13:38 Temperature 98.0 F Pulse Rate 70 Respiratory Rate 16 Blood Pressure 130/74 Pulse Oximetry 97 Oxygen Delivery Method Room Air Oxygen Delivery Method Room Air Const General: healthy appearing and No acute distress Assessment & Plan Assessment and plan (1) History of adenomatous polyp of colon: Status: Acute Plan We reviewed the risks and benefits of colonoscopy and she would like to proceed. Time Spent With Patient Critical Care time: I spent a total of [] minutes of critical care time on this patient's care today; this time is exclusive of procedural time.
--- NOTE | 2022-05-18 16:56 | P.OP.COLON_ITS ---
Operative Date/Time/Diagnoses Date of procedure: 05/18/22 Time of procedure: 16:56 Pre-op diagnosis: History of adenomatous polyp Post-op diagnosis: same Procedure & Clinicians Study performed: Colonoscopy Same procedure as scheduled: Yes Surgeon: Jonnathan Muñoz Procedure Notes Procedure in detail: Surgeon: Jonnathan Muñoz MD Anesthesia: Dr. Damian Procedure: The patient was brought to the endoscopy suite, placed in left lateral decubitus position. The patient was connected to monitoring devices. A time-out was performed. Sedation was administered. Once the patient was adequately sedated, a digital rectal exam was performed and was normal. The scope was then inserted and advanced to the cecum where the appendiceal orifice was identified and photographed. The scope was then slowly withdrawn over greater than 6 minutes. The mucosa was thoroughly inspected. No polyps were no arabella. The scope was retroflexed in the rectum. No abnormalities were noted. The scope was straightened and removed. The patient was awakened and brought to recovery. Scope withdrawal time: 6 minutes Sedation time: 10 minute EBL: 5 mL Findings: Normal colon Post-procedure Recommendations: Colonoscopy in 5 years Disposition: PACU
[2022-05-18 16:58] VITALS: BP 101/55; PULSE 84; RESP 17; TEMP 35.7; O2SAT 93
[2022-05-18 17:02] VITALS: BP 91/53; PULSE 71; RESP 14; O2SAT 97
[2022-05-18 17:07] VITALS: BP 106/64; PULSE 72; RESP 22; O2SAT 96
[2022-05-18 17:20] VITALS: BP 123/79; PULSE 62; RESP 14; O2SAT 99
== END 2022-05-18 18:01 | disposition home or self-care (01) ==
PROVIDERS: PCP Internal Medicine; Referring Provider Surgery; Visit Provider Surgery
PROC: 0DJD8ZZ Inspection of Lower Intestinal Tract, Via Natural or Artificial Opening Endoscopic (ICD-10-PCS; CPT 45378; principal; 2022-05-18 14:45)
DX: Z12.11 Encounter for screening for malignant neoplasm of colon (principal); Z86.010 Personal history of colon polyps
CPT/HCPCS: G0105

== ENCOUNTER → 2022-08-24 11:32 | Outpatient (CLI) | payer MEDICARE, SELFPAY ==
[2020-07-16 13:19] VITALS: BMI 25.3
--- NOTE | 2022-08-24 | DI.MG.S_ITS ---
BILATERAL DIGITAL SCREENING MAMMOGRAM 3D/2D WITH CAD: 08/24/2022 CLINICAL: Routine screening. Comparison is made to exams dated: 08/17/2021 mammogram, 07/05/2020 mammogram, and 09/02/2018 mammogram - [facility]. Both breasts are extremely dense, which lowers the sensitivity of mammography (category d />75% glandular tissue). Current study was also evaluated with a Computer Aided Detection (CAD) system. There are mole markers on both breasts. No significant masses, calcifications, or other findings are seen in either breast. There has been no significant interval change. IMPRESSION: NEGATIVE There is no mammographic evidence of malignancy. A 1 year screening mammogram is recommended. Based on the Tyrer Cuzick model (a risk assessment model) the patient's lifetime risk is 11.4% and her 10 year risk is 7.9%. According to the ACR, ACS, and NCCN guidelines, an annual breast MRI exam along with mammogram is recommended if the patient's lifetime risk is 20% or greater. This exam was interpreted at Station ID: [id number]. NOTE: For mammograms, a report in lay terms will be sent to the patient. Approximately 15% of breast malignancies will not be visualized mammographically. In the management of a palpable breast mass, a negative mammogram must not discourage biopsy of a clinically suspicious lesion. Electronically Signed By: Bryan paz/lilliam:08/24/2022 13:41:31 letter sent: Normal Exam ACR BI-RADS Category 1: Negative 3341F
== END ==
PROVIDERS: PCP Internal Medicine; Referring Provider Internal Medicine; Visit Provider Internal Medicine
DX: Z12.31 Encounter for screening mammogram for malignant neoplasm of breast (principal)
CPT/HCPCS: 77063; 77067

== ENCOUNTER → 2023-08-10 07:46 | Outpatient (CLI) | payer MEDICARE, SELFPAY ==
[2020-07-16 13:19] VITALS: BMI 25.3
[2023-08-10 08:41] LABS: Add Manual Diff / Slide Review NO; Basophils Absolute Auto 0 /uL (0-100); Basophils Percent Auto 0.6 % (0-2); Eosinophils Absolute Auto 100 /uL (0-450); Eosinophils Percent Auto 1.3 % (2-4); Hematocrit 40.3 % (36-46); Hemoglobin 13.7 g/dL (12.0-16.0); Lymphocytes Absolute Auto 1800 /uL (1100-4500); Lymphocytes Percent Auto 24.5 % (25-40); Mean Corpuscular HGB Conc 34.1 % (30-36); Mean Corpuscular Hemoglobin 31.5 PG (26-34); Mean Corpuscular Volume 92.5 fL (80-100); Monocytes Absolute Auto 600 /uL (0-900); Monocytes Percent Auto 8.2 % (3-14); Neutrophils Absolute Auto 4700 /uL (1500-7000); Neutrophils Percent Auto 65.4 % (50-75); Platelet Count 234 X10^3/uL (150-400); Red Blood Cell Count 4.35 X10^6/uL (4.0-5.2); Red Cell Distribution Width 13.8 % (11.6-14.8); White Blood Cell Count 7.3 X10^3/uL (4.5-11.0)
[2023-08-10 09:07] LABS: Alanine Aminotransferase 14 IU/L (<35); Albumin 3.9 g/dL (3.5-5.0); Albumin Globulin Ratio 1.2 (1.0-2.8); Alkaline Phosphatase 61 U/L (38-126); Aspartate Aminotransferase 22 IU/L (14-36); BUN Creatinine Ratio 37.1 (6-22); Bilirubin Total 0.5 mg/dL (0.2-1.3); Blood Urea Nitrogen 23 mg/dL (7-17); Carbon Dioxide 28 mmol/L (22-32); Chloride 109 mmol/L (98-107); Cholesterol 249 mg/dL (140-199); Estimated Glomerular Filt Rate > 60 mL/min (>60); Globulin 3.3 g/dL (1.7-4.1); Glucose 87 mg/dL (80-110); HDL Cholesterol 72 mg/dL (40-60); HEMOLYSIS < 15 (0-50); LDL Cholesterol Calculated 167 mg/dL (<100); Potassium 4.1 mmol/L (3.4-5.1); Sodium 142 mmol/L (137-145); Total Protein 7.2 g/dL (6.3-8.2); Triglycerides 51 mg/dL (35-150)
== END ==
PROVIDERS: PCP Internal Medicine; Referring Provider Internal Medicine; Visit Provider Internal Medicine
DX: G25.0 Essential tremor (principal); E78.5 Hyperlipidemia, unspecified; D64.9 Anemia, unspecified
CPT/HCPCS: 36415; 80053; 80061; 85025

== ENCOUNTER → 2023-08-24 11:00 | Outpatient (CLI) | payer MEDICARE, SELFPAY ==
[2020-07-16 13:19] VITALS: BMI 25.3
--- NOTE | 2023-08-24 11:01 | DI.MG.S_ITS ---
BILATERAL DIGITAL SCREENING MAMMOGRAM 3D/2D WITH CAD: 08/24/2023 CLINICAL: Routine screening. Comparison is made to exams dated: 08/24/2022 mammogram, 08/17/2021 mammogram, and 07/05/2020 mammogram - [facility]. Both breasts are heterogeneously dense, which may obscure small masses (category c / 51-75% glandular tissue). Current study was also evaluated with a Computer Aided Detection (CAD) system. There are mole markers on both breasts. No significant masses, calcifications, or other findings are seen in either breast. There has been no significant interval change. IMPRESSION: NEGATIVE There is no mammographic evidence of malignancy. A 1 year screening mammogram is recommended. Based on the Tyrer Cuzick model (a risk assessment model) the patient's lifetime risk is 7.2% and her 10 year risk is 5.4%. According to the ACR, ACS, and NCCN guidelines, an annual breast MRI exam along with mammogram is recommended if the patient's lifetime risk is 20% or greater. This exam was interpreted at Station ID: [id number]. NOTE: For mammograms, a report in lay terms will be sent to the patient. Approximately 15% of breast malignancies will not be visualized mammographically. In the management of a palpable breast mass, a negative mammogram must not discourage biopsy of a clinically suspicious lesion. Electronically Signed By: Ericka prescott/lilliam:08/24/2023 14:18:55 letter sent: Normal Exam ACR BI-RADS Category 1: Negative 3341F
== END ==
PROVIDERS: PCP Internal Medicine; Referring Provider Internal Medicine; Visit Provider Internal Medicine
DX: Z12.31 Encounter for screening mammogram for malignant neoplasm of breast (principal); R92.333 Mammographic heterogeneous density, bilateral breasts
CPT/HCPCS: 77063; 77067

== ENCOUNTER → 2024-07-21 07:04 | Outpatient (CLI) | payer MEDICARE, SELFPAY ==
[2020-07-16 13:19] VITALS: BMI 25.3
[2024-07-21 07:48] LABS: Add Manual Diff / Slide Review NO; Basophils Absolute Auto 0 /uL (0-100); Eosinophils Absolute Auto 100 /uL (0-450); Eosinophils Percent Auto 1.7 % (2-4); Hematocrit 40.2 % (36-46); Hemoglobin 13.8 g/dL (12.0-16.0); Lymphocytes Absolute Auto 1900 /uL (1100-4500); Lymphocytes Percent Auto 37.5 % (25-40); Mean Corpuscular HGB Conc 34.4 % (30-36); Mean Corpuscular Hemoglobin 31.7 PG (26-34); Mean Corpuscular Volume 92.3 fL (80-100); Monocytes Absolute Auto 500 /uL (0-900); Monocytes Percent Auto 9.8 % (3-14); Neutrophils Absolute Auto 2600 /uL (1500-7000); Platelet Count 217 X10^3/uL (150-400); Red Blood Cell Count 4.36 X10^6/uL (4.0-5.2); Red Cell Distribution Width 13.8 % (11.6-14.8); White Blood Cell Count 5.1 X10^3/uL (4.5-11.0)
[2024-07-21 08:27] LABS: Alanine Aminotransferase 16 IU/L (<35); Albumin 4.2 g/dL (3.5-5.0); Albumin Globulin Ratio 1.4 (1.0-2.8); Alkaline Phosphatase 64 U/L (38-126); Aspartate Aminotransferase 24 IU/L (14-36); BUN Creatinine Ratio 15.3 (6-22); Bilirubin Total 0.6 mg/dL (0.2-1.3); Blood Urea Nitrogen 11 mg/dL (7-17); Calcium 9.3 mg/dL (8.4-10.2); Carbon Dioxide 26 mmol/L (22-32); Chloride 107 mmol/L (98-107); Cholesterol 277 mg/dL (140-199); Estimated Glomerular Filt Rate > 60 mL/min (>60); Globulin 2.9 g/dL (1.7-4.1); Glucose 90 mg/dL (80-110); HDL Cholesterol 69 mg/dL (40-60); HEMOLYSIS < 15 (0-50); LDL Cholesterol Calculated 184 mg/dL (<100); Potassium 4.2 mmol/L (3.4-5.1); Sodium 140 mmol/L (137-145); Total Protein 7.1 g/dL (6.3-8.2); Triglycerides 118 mg/dL (35-150)
[2024-07-21 08:52] LABS: TSH w/ Reflex to FT4 1.91 uIU/mL (0.47-4.68)
== END ==
PROVIDERS: PCP Internal Medicine; Referring Provider Internal Medicine; Visit Provider Internal Medicine
DX: I10 Essential (primary) hypertension (principal); E78.2 Mixed hyperlipidemia; D64.9 Anemia, unspecified; E03.9 Hypothyroidism, unspecified
CPT/HCPCS: 36415; 80053; 80061; 84443; 85025

== ENCOUNTER → 2024-08-22 09:05 | Outpatient (CLI) | payer MEDICARE, SELFPAY ==
[2020-07-16 13:19] VITALS: BMI 25.3
--- NOTE | 2024-08-22 09:07 | DI.MG.S_ITS ---
MM screening mammo BI: 08/22/2024. BI-RADS: 1 CLINICAL: 73-year old female for bilateral screening mammogram. Tyrer-Cuzick lifetime risk of 5.8%. No personal or first-degree family history of breast cancer. The patient had a prior right breast biopsy. PRIOR EXAMS 08/24/2023, 08/24/2022, 08/17/2021, 07/05/2020, 09/02/2018. MAMMOGRAPHY TECHNIQUE: 2D and 3D (tomosynthesis) digital mammographic views obtained, with additional images as needed for full coverage. Current study was also evaluated with a Computer Aided Detection (CAD) system. DENSITY C. The breasts are heterogeneously dense, which may obscure small masses. MAMMOGRAPHY FINDINGS Bilateral: No suspicious mass, asymmetry, microcalcification, or other abnormality seen. IMPRESSION: * No evidence of malignancy. RECOMMENDATIONS Bilateral * Annual screening mammography. OVERALL ASSESSMENT CATEGORY BI-RADS-1: Negative. The [employer] recommends annual screening mammography beginning at age 40 for women with average risk of breast cancer. ELECTRONICALLY SIGNED: Teresa Rosas M.D. on 08/22/2024 at 12:32:33 PM PT Interpreting Station ID: [id number]
== END ==
LOC: MAMMO 09:06
PROVIDERS: PCP Internal Medicine; Referring Provider Internal Medicine; Visit Provider Internal Medicine
DX: Z12.31 Encounter for screening mammogram for malignant neoplasm of breast (principal); R92.333 Mammographic heterogeneous density, bilateral breasts
CPT/HCPCS: 77063; 77067